=== PATIENT | female | born 1980 | race Caucasian/White ===

== ENCOUNTER 2016-07-08 17:17 | Emergency (ER) | payer OTHER ==
[~2016-07-08 17:17] MED LIST: CIPR500T89 PO; GLYB1.25 PO; LABE20TAB PO; SERT-141 PO; TYLE167L PO; TYLE325T5 PO; ZOLO50TA PO
[2016-07-08] MEDS ORDERED: IBUPROFEN 800 MG TAB As Ordered ONE (17:55)
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
--- NOTE | 2016-07-08 18:49 | REP ---
CHEST X-RAY PA AND LATERAL: 07/08/2016: Clinical history: Trauma. Comparison: 11/06/2015. Findings. Lungs are well inflated and clear. The heart, mediastinal and hilar contours are normal. The airway is intact. The aorta is normal. Bony thorax was unremarkable. There is no free air under the diaphragm. Impression: 1. Negative chest. Signed by Gonzalo Dye MD 07/08/2016 07:57 P
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
== END 2016-07-08 18:27 | disposition home or self-care (01) ==
LOC: M ED 17:17
DX: S20.212A Contusion of left front wall of thorax, initial encounter (principal); S80.02XA Contusion of left knee, initial encounter; V49.40XA Driver injured in collision with unspecified motor vehicles in traffic accident, initial encounter; Y92.410 Unspecified street and highway as the place of occurrence of the external cause; F41.9 Anxiety disorder, unspecified; Z79.899 Other long term (current) drug therapy; Z88.0 Allergy status to penicillin; Z88.8 Allergy status to other drugs, medicaments and biological substances; Z87.891 Personal history of nicotine dependence

== ENCOUNTER → 2016-08-27 | Outpatient (REF) | payer OTHER, MEDICAID ==
[~2016-08-27] MED LIST changes: -SERT-141 PO; +SERT50TA PO
== END ==
LOC: M LAB REF 17:06
PROVIDERS: ATTEND Advanced Practice Midwife
DX: R10.30 Lower abdominal pain, unspecified (principal)

== ENCOUNTER → 2016-09-01 | Outpatient (CLI) | payer OTHER ==
--- NOTE | 2016-09-01 18:47 | REP ---
Clinical: Pelvic pain . Technique: Transabdominal pelvic ultrasound with color Doppler evaluation of the ovaries. Findings: Bladder is unremarkable and measures 11.2 x 6.7 x 8.1 cm . Normal anteverted uterus measures 8.8 x 3.9 x 5.2 cm . The endometrial complex measures 9.1 mm thickness. No discrete uterine or endometrial abnormalities are appreciated. Bilateral ovaries are normal in appearance and vascularity without evidence for torsion. Right ovary measures 4.1 x 1.3 x 2.6 cm ; R I = 0.70 . Left ovary measures 2.4 x 2.5 x 2.2 cm ; R I = 0.60 . No pelvic fluid or adnexal mass lesion. Impression: 1. Normal pelvic ultrasound. No torsion. Signed by Ajay Hammer MD 09/01/2016 06:39 P
== END ==
LOC: M RAD 17:04
PROVIDERS: ATTEND Advanced Practice Midwife
DX: R10.30 Lower abdominal pain, unspecified (principal)

== ENCOUNTER 2017-02-02 10:22 | Emergency (ER) | payer MEDICAID, OTHER ==
[~2017-02-02] VITALS: Ht 172.7 cm; Wt 93.2 kg
[2017-02-02 10:22] VITALS: BP 153/83
[~2017-02-02 10:22] MED LIST changes: +CIPR-249 PO; -CIPR500T89 PO; -GLYB1.25 PO; +GLYB1TAB PO
[2017-02-02] MEDS ORDERED: VALT500T PO (10:52)
[2017-02-02] MEDS ORDERED: LIDO1SOL7 MT (10:52)
[2017-02-02] MEDS ORDERED: valACYclovir HCL 500 MG TAB PO ONE (11:00)
[2017-02-02] MEDS ORDERED: LIDOCAINE VISCOUS 2% SOLN 15ML UDC SSP ONE (11:00)
== END 2017-02-02 10:57 | disposition home or self-care (01) ==
LOC: M ED 10:22
DX: H92.01 Otalgia, right ear (principal); B00.2 Herpesviral gingivostomatitis and pharyngotonsillitis; B00.1 Herpesviral vesicular dermatitis; E11.9 Type 2 diabetes mellitus without complications; F41.9 Anxiety disorder, unspecified

== ENCOUNTER 2017-07-21 17:35 | Emergency (ER) | payer OTHER, MEDICAID, SELFPAY ==
[2017-07-21 19:05] LABS: BASO % 0.4 % (0.0-1.0); EOS # 0.1 10^3/uL (0.0-0.50); EOS % 1.4 % (0.0-3.0); HEMATOCRIT 37.9 % (36.0-47.0); HEMOGLOBIN 12.7 g/dl (12.0-16.0); IMMATURE GRANULOCYTE % 0.1 % (0-3.0); LYMPH # 2.4 10^3/uL (1.5-4.5); LYMPH % 29.9 % (24.0-44.0); MEAN CORPUSCULAR HGB CONC 33.5 g/dl (32.0-36.5); MEAN CORPUSCULAR VOLUME 89.4 fl (80.0-96.0); MONO # 0.6 10^3/uL (0.0-0.8); MONO % 7.3 % (0.0-5.0); NEUTROPHILS # 4.8 10^3/uL (1.8-7.7); NEUTROPHILS % 60.9 % (36.0-66.0); PLATELET COUNT, AUTOMATED 203 10^3/uL (150-450); RED BLOOD COUNT 4.24 10^6/uL (4.00-5.40); RED CELL DISTRIBUTION WIDTH 12.4 % (11.5-14.5); WHITE BLOOD COUNT 7.9 10^3/uL (4.0-10.0)
[2017-07-21 19:19] LABS: D-DIMER QUANT 529.4 ng/ml (<500)
[2017-07-21 19:28] LABS: ANION GAP 6 MEQ/L (8-16); BLOOD UREA NITROGEN 16 MG/DL (7-18); CALCIUM LEVEL 8.6 MG/DL (8.5-10.1); CARBON DIOXIDE LEVEL 30 MEQ/L (21-32); CHLORIDE LEVEL 106 MEQ/L (98-107); CPK CREATINE PHOSPHOKINASE 67 U/L (26-192); CREATININE FOR GFR 0.57 MG/DL (0.55-1.30); GLOMERULAR FILTRATION RATE > 60.0 (>60); GLUCOSE, FASTING 132 MG/DL (70-100); POTASSIUM SERUM 3.9 MEQ/L (3.5-5.1); SODIUM LEVEL 142 MEQ/L (136-145); TROPONIN I < 0.02 NG/ML (< 0.10)
[2017-07-21 19:29] LABS: MB/CK RELATIVE INDEX 1.49 (< OR =4)
[2017-07-21] MEDS: NS 1,000 ML IV (20:00)
[2017-07-21] MEDS ORDERED: ISOVUE-370 76% 100ML VIAL (Q9967) As Ordered (20:36)
[2017-07-21] MEDS: KETOROLAC 30 MG/ML VIAL (J1885) IV (21:37)
== END 2017-07-21 22:03 | disposition home or self-care (01) ==
LOC: M ED 17:35
DX: R07.9 Chest pain, unspecified (principal); R91.1 Solitary pulmonary nodule; F41.9 Anxiety disorder, unspecified; Z87.891 Personal history of nicotine dependence; Z79.899 Other long term (current) drug therapy; Z88.0 Allergy status to penicillin; Z88.8 Allergy status to other drugs, medicaments and biological substances
CPT/HCPCS: Q9967

== ENCOUNTER → 2017-10-14 | Outpatient (CLI) | payer OTHER ==
[2017-10-14 10:27] LABS: BASO % 0.4 % (0.0-1.0); EOS # 0.1 10^3/uL (0.0-0.50); EOS % 1.3 % (0.0-3.0); HEMATOCRIT 39.3 % (36.0-47.0); HEMOGLOBIN 12.9 g/dl (12.0-15.5); IMMATURE GRANULOCYTE % 0.3 % (0-3.0); LYMPH % 28.9 % (24.0-44.0); MEAN CORPUSCULAR HEMOGLOBIN 29.3 pg (27.0-33.0); MEAN CORPUSCULAR HGB CONC 32.8 g/dl (32.0-36.5); MEAN CORPUSCULAR VOLUME 89.1 fl (80.0-96.0); MONO # 0.5 10^3/uL (0.0-0.8); MONO % 6.8 % (0.0-5.0); NEUTROPHILS # 4.3 10^3/uL (1.8-7.7); NEUTROPHILS % 62.3 % (36.0-66.0); PLATELET COUNT, AUTOMATED 198 10^3/uL (150-450); RED BLOOD COUNT 4.41 10^6/uL (4.00-5.40); RED CELL DISTRIBUTION WIDTH 12.4 % (11.5-14.5); WHITE BLOOD COUNT 6.9 10^3/uL (4.0-10.0)
[2017-10-14 10:48] LABS: PROGESTERONE 0.5 NG/ML
[2017-10-14 10:50] LABS: FOLLICLE STIMULATING HORMONE 9.3 mIU/mL
[2017-10-14 11:12] LABS: ALBUMIN/GLOBULIN RATIO 1.11 (1.00-1.93); ALKALINE PHOSPHATASE 94 U/L (45-117); ALT/SGPT 25 U/L (12-78); ANION GAP 4 MEQ/L (8-16); AST/SGOT 16 U/L (7-37); BILIRUBIN,TOTAL 0.4 MG/DL (0.2-1.0); BLOOD UREA NITROGEN 11 MG/DL (7-18); CALCIUM LEVEL 8.5 MG/DL (8.5-10.1); CARBON DIOXIDE LEVEL 30 MEQ/L (21-32); CHLORIDE LEVEL 106 MEQ/L (98-107); CHOLESTEROL LEVEL 176 MG/DL (<200); CHOLESTEROL RISK RATIO 3.591 (<5); CREATININE FOR GFR 0.54 MG/DL (0.55-1.30); GLOMERULAR FILTRATION RATE > 60.0 (>60); GLUCOSE, FASTING 95 MG/DL (70-100); HDL CHOLESTEROL 49 MG/DL (>40); NON-HDL-C 127 MG/DL; SODIUM LEVEL 140 MEQ/L (136-145); THYROXINE (T4) 7.4 UG/DL (4.5-12.0); TOTAL PROTEIN 7.6 GM/DL (6.4-8.2); TRIGLYCERIDES LEVEL 95 MG/DL (<150)
[2017-10-14 11:28] LABS: HIV 1&2 SCREEN CENTAUR NEGATIVE (NEGATIVE)
[2017-10-14 12:09] LABS: CHLAMYDIA DNA AMPLIFICATION NEGATIVE (NEGATIVE); GC DNA AMPLIFICATION NEGATIVE (NEGATIVE)
[2017-10-19 00:08] LABS: ESTRONE SERUM 55 pg/mL (.)
== END ==
LOC: M WUC 08:38
DX: K21.9 Gastro-esophageal reflux disease without esophagitis (principal); N92.1 Excessive and frequent menstruation with irregular cycle; Z13.220 Encounter for screening for lipoid disorders
CPT/HCPCS: 83001

== ENCOUNTER → 2017-10-14 | Outpatient (CLI) | payer OTHER | LOC: M EKG 09:20 | DX: R07.9 Chest pain, unspecified (principal) | CPT/HCPCS: 93005 ==

== ENCOUNTER 2017-10-23 11:16 | Emergency (ER) | payer OTHER | END 2017-10-23 13:23 | disposition home or self-care (01) | LOC: M ED 11:16 | DX: H66.91 Otitis media, unspecified, right ear (principal); J02.9 Acute pharyngitis, unspecified; F33.9 Major depressive disorder, recurrent, unspecified; K58.9 Irritable bowel syndrome, unspecified; Z79.899 Other long term (current) drug therapy; Z88.0 Allergy status to penicillin; Z88.8 Allergy status to other drugs, medicaments and biological substances | CPT/HCPCS: 87880 ==

== ENCOUNTER → 2017-11-09 | Outpatient (REF) | payer OTHER ==
[2017-11-09 12:57] LABS: HCG, SERUM QUANTITATIVE < 1.0 MIU/ML
== END ==
LOC: M LAB REF 12:11
DX: N92.1 Excessive and frequent menstruation with irregular cycle (principal)
CPT/HCPCS: 84702

== ENCOUNTER → 2017-11-17 | Outpatient (CLI) | payer OTHER ==
[~2017-11-17] MED LIST changes: -CIPR-249 PO; -GLYB1TAB PO; +ISOVUE-370 76% 100ML VIAL (Q9967) As Ordered; -LABE20TAB PO; -SERT50TA PO; -TYLE167L PO; -TYLE325T5 PO; -ZOLO50TA PO
== END ==
LOC: M RAD 13:54
DX: R91.1 Solitary pulmonary nodule (principal)
CPT/HCPCS: Q9967

== ENCOUNTER → 2018-01-27 | Outpatient (REF) | payer OTHER, MEDICAID ==
[2018-01-31 14:22] LABS: HPV HYBRID CAPTURE II Negative (Negative)
== END ==
LOC: M LAB REF 11:09
DX: Z12.4 Encounter for screening for malignant neoplasm of cervix (principal)

== ENCOUNTER → 2018-02-07 | Outpatient (CLI) | payer OTHER | LOC: M PLARAD 10:25 | DX: R91.1 Solitary pulmonary nodule (principal) | CPT/HCPCS: 78815 ==

== ENCOUNTER → 2018-03-20 | Outpatient (REF) | payer OTHER, MEDICAID | LOC: M LAB REF 18:20 | DX: R87.612 Low grade squamous intraepithelial lesion on cytologic smear of cervix (LGSIL) (principal) ==

== ENCOUNTER 2018-04-21 08:58 | Day surgery (SDC) | payer OTHER ==
[2018-04-21] MEDS ORDERED: ROCURONIUM BROMIDE 50 MG/5 ML VIAL As Ordered (09:27)
[2018-04-21] MEDS ORDERED: LIDOCAINE 2% INJ 100 MG/5 ML SDV (FOR ANES.) As Ordered (09:27)
[2018-04-21] MEDS ORDERED: dexameTHASONE 4 MG/ML 1ML VIAL (J1100) As Ordered (09:27)
[2018-04-21] MEDS ORDERED: PROPOFOL 200 MG/20 ML VIAL As Ordered (09:27)
[2018-04-21] MEDS ORDERED: fentaNYL 100 MCG/2 ML INJECTION (J3010) As Ordered (09:28)
[2018-04-21] MEDS ORDERED: MIDAZOLAM INJ 2 MG/2 ML VIAL (J2250) As Ordered (09:28)
[2018-04-21 09:35] LABS: HEMATOCRIT 40.3 % (36.0-47.0); HEMOGLOBIN 13.2 g/dl (12.0-15.5); MEAN CORPUSCULAR HEMOGLOBIN 29.7 pg (27.0-33.0); MEAN CORPUSCULAR HGB CONC 32.8 g/dl (32.0-36.5); MEAN CORPUSCULAR VOLUME 90.8 fl (80.0-96.0); PLATELET COUNT, AUTOMATED 221 10^3/uL (150-450); RED BLOOD COUNT 4.44 10^6/uL (4.00-5.40); RED CELL DISTRIBUTION WIDTH 12.8 % (11.5-14.5); WHITE BLOOD COUNT 10.9 10^3/uL (4.0-10.0)
[2018-04-21] MEDS ORDERED: SUGAMMADEX SODIUM 500 MG/5 ML VIAL (BRIDION) As Ordered ×2 (09:35→11:03)
[2018-04-21 09:50] LABS: CONTROL LINE HCG INT CTR LINE PRESENT; HCG, SERUM QUALITATIVE NEGATIVE (NEGATIVE)
[2018-04-21] MEDS: LR 1,000 ML IV ×2 (10:00→11:12)
[2018-04-21] MEDS ORDERED: KETOROLAC 60 MG/2 ML VIAL (J1885) As Ordered (10:42)
[2018-04-21] MEDS ORDERED: ONDANSETRON 4MG/2ML VIAL (J2405) As Ordered (10:42)
[2018-04-21] MEDS: BUPIVACAINE HCL 0.25% 10 ML VIAL As Ordered (10:45)
[2018-04-21] MEDS ORDERED: ePHEDrine SULFATE 25 MG/5 ML(5MG/ML) SYRINGE As Ordered (10:52)
[2018-04-21] MEDS ORDERED: PHENYLephrine HCL 500 MCG/5 ML (100MCG/ML) SYRINGE (J2370) As Ordered (10:53)
[2018-04-21] MEDS: PERCOCET 5MG/325MG TAB PO (11:35)
[2018-04-21] MEDS ORDERED: fentaNYL 100 MCG/2 ML INJECTION (J3010) IV (11:45)
[2018-04-21] MEDS ORDERED: PERCOCET 5MG/325MG TAB PO (11:45)
[2018-04-21] MEDS ORDERED: ONDANSETRON 4MG/2ML VIAL (J2405) IV (11:45)
[2018-04-21] MEDS ORDERED: METOCLOPRAMIDE INJ 10MG/2ML VIAL (J2765) IV (11:45)
[2018-04-21] MEDS ORDERED: MEPERIDINE INJ 25 MG/ML VIAL (J2175) IV (11:45)
[2018-04-21] MEDS: ACETAMINOPHEN 500 MG TAB PO (12:45)
[2018-04-21] MEDS ORDERED: KETOROLAC 30 MG/ML VIAL (J1885) IV (17:00)
== END 2018-04-21 11:47 | disposition home or self-care (01) ==
LOC: M SDC 08:58
DX: Z30.2 Encounter for sterilization (principal); F41.9 Anxiety disorder, unspecified; F32.9 Major depressive disorder, single episode, unspecified; G43.909 Migraine, unspecified, not intractable, without status migrainosus; R91.1 Solitary pulmonary nodule; R06.83 Snoring; Z88.0 Allergy status to penicillin; Z88.8 Allergy status to other drugs, medicaments and biological substances; Z79.899 Other long term (current) drug therapy
CPT/HCPCS: 58671

== ENCOUNTER 2018-04-29 11:24 | Emergency (ER) | payer OTHER ==
[2018-04-29] MEDS: NS 1,000 ML IV (13:09)
[2018-04-29] MEDS: GASTROGRAFIN SOLUTION 30ML PO ×2 (13:10→13:40)
[2018-04-29] MEDS: DICYCLOMINE INJ 20MG/2ML (J0500) IM (13:18)
[2018-04-29 13:24] LABS: BASO % 0.4 % (0.0-1.0); EOS # 0.1 10^3/uL (0.0-0.50); EOS % 1.4 % (0.0-3.0); HEMATOCRIT 38.4 % (36.0-47.0); HEMOGLOBIN 12.7 g/dl (12.0-15.5); IMMATURE GRANULOCYTE % 0.4 % (0-3.0); LYMPH # 1.8 10^3/uL (1.5-4.5); LYMPH % 22.8 % (24.0-44.0); MEAN CORPUSCULAR HEMOGLOBIN 29.3 pg (27.0-33.0); MEAN CORPUSCULAR HGB CONC 33.1 g/dl (32.0-36.5); MEAN CORPUSCULAR VOLUME 88.7 fl (80.0-96.0); MONO # 0.7 10^3/uL (0.0-0.8); MONO % 9.5 % (0.0-5.0); NEUTROPHILS # 5.1 10^3/uL (1.8-7.7); NEUTROPHILS % 65.5 % (36.0-66.0); PLATELET COUNT, AUTOMATED 205 10^3/uL (150-450); RED BLOOD COUNT 4.33 10^6/uL (4.00-5.40); RED CELL DISTRIBUTION WIDTH 12.6 % (11.5-14.5); WHITE BLOOD COUNT 7.8 10^3/uL (4.0-10.0)
[2018-04-29 13:52] LABS: ALBUMIN 3.4 GM/DL (3.2-5.2); ALKALINE PHOSPHATASE 94 U/L (45-117); ALT/SGPT 32 U/L (12-78); AMYLASE 38 U/L (25-115); ANION GAP 5 MEQ/L (8-16); AST/SGOT 19 U/L (7-37); BILIRUBIN,TOTAL 0.2 MG/DL (0.2-1.0); BLOOD UREA NITROGEN 10 MG/DL (7-18); C REACTIVE PROTEIN QUANTITATIV 0.92 MG/DL (0.00-0.30); CALCIUM LEVEL 8.5 MG/DL (8.5-10.1); CARBON DIOXIDE LEVEL 29 MEQ/L (21-32); CHLORIDE LEVEL 108 MEQ/L (98-107); CREATININE FOR GFR 0.49 MG/DL (0.55-1.30); GLOMERULAR FILTRATION RATE > 60.0 (>58); GLUCOSE, FASTING 80 MG/DL (70-100); LIPASE 78 U/L (73-393); POTASSIUM SERUM 3.9 MEQ/L (3.5-5.1); SODIUM LEVEL 142 MEQ/L (136-145); TOTAL PROTEIN 6.8 GM/DL (6.4-8.2)
[2018-04-29 14:01] LABS: APPEARANCE, URINE CLOUDY (CLEAR); BACTERIA, URINE AUTO 1+ (NEGATIVE); BILIRUBIN, URINE AUTO NEGATIVE (NEGATIVE); BLOOD, URINE BLOOD 3+ (NEGATIVE); COLOR, URINE AMBER (YELLOW); GLUCOSE, URINE (UA) AUTO NEGATIVE (NEGATIVE); KETONE, URINE AUTO TRACE mg/dL (NEGATIVE); LEUKOCYTE ESTERASE, URINE AUTO TRACE (NEGATIVE); MUCUS, URINE LARGE (NEGATIVE); NITRITE, URINE AUTO NEGATIVE (NEGATIVE); PROTEIN, URINE AUTO 1+ mg/dL (NEGATIVE); RBC, URINE AUTO 14 /HPF (0-3); SPECIFIC GRAVITY URINE AUTO 1.028 (1.002-1.035); SQUAMOUS EPITHELIAL CELL UR AU 17 /HPF (0-6); WBC, URINE AUTO 11 /HPF (0-3)
[2018-04-29] MEDS ORDERED: ISOVUE-370 76% 100ML VIAL (Q9967) As Ordered (14:01)
[2018-04-29 14:08] LABS: CONTROL LINE UCG INT CTR LINE PRESENT; URINE PREG TEST NEGATIVE (NEGATIVE)
[2018-04-29] MEDS: KETOROLAC 30 MG/ML VIAL (J1885) IV (14:26)
[2018-04-29] MEDS: CIPROFLOXACIN 500 MG TAB PO (15:09)
[2018-04-29] MEDS: metroNIDAZOLE (FLAGYL) 500 MG TAB PO (15:09)
== END 2018-04-29 15:10 | disposition home or self-care (01) ==
LOC: M ED 11:24
DX: N39.0 Urinary tract infection, site not specified (principal); K52.9 Noninfective gastroenteritis and colitis, unspecified; F41.9 Anxiety disorder, unspecified; Z79.899 Other long term (current) drug therapy; Z88.0 Allergy status to penicillin
CPT/HCPCS: Q9963

== ENCOUNTER 2018-08-06 11:00 | Emergency (ER) | payer MEDICAID, OTHER ==
[~2018-08-06] VITALS: Ht 172.7 cm; Wt 95.5 kg
[~2018-08-06 11:00] MED LIST changes: +CIPR-249 PO; +FLAG500T PO; +GLYB1TAB PO; +IBUP-1022 PO; +IBUP1TAB7 PO; -ISOVUE-370 76% 100ML VIAL (Q9967) As Ordered; +LABE20TAB PO; +LIDO1SOL7 MT; +NAPR-50 PO; +PERCOCET PO; +SERT50TA PO; +TYLE167L PO; +TYLE325T5 PO; +VALT500T PO; +ZITHTAB PO; +ZOFR4TAB14 PO; +ZOLO50TA PO
[2018-08-06] MEDS ORDERED: FLON1SPR NARES (11:44)
[2018-08-06] MEDS ORDERED: MUCI600T31 PO (11:44)
[2018-08-06] MEDS ORDERED: ZYRTTAB8 PO (11:45)
[2018-08-06 11:49] VITALS: BP 134/90
== END 2018-08-06 11:51 | disposition home or self-care (01) ==
LOC: M ED 11:00
DX: J30.9 Allergic rhinitis, unspecified (principal); K58.9 Irritable bowel syndrome, unspecified; F41.9 Anxiety disorder, unspecified; Z88.0 Allergy status to penicillin; Z88.8 Allergy status to other drugs, medicaments and biological substances; Z79.899 Other long term (current) drug therapy

== ENCOUNTER 2018-12-12 08:32 | Emergency (ER) | payer MEDICAID, OTHER ==
[~2018-12-12] VITALS: Ht 172.7 cm; Wt 95.5 kg
[~2018-12-12 08:32] MED LIST changes: +FLON1SPR NARES; -LIDO1SOL7 MT; +LIDO1SOL8 MT; +MUCI600T31 PO; -NAPR-50 PO; +NAPR-837 PO; +SERT-141 PO; -SERT50TA PO; +ZYRTTAB8 PO
[2018-12-12] MEDS ORDERED: NS 1,000 ML IV ONE (09:45)
[2018-12-12 10:30] LABS: BASO % 0.6 % (0.0-1.0); EOS # 0.1 10^3/uL (0.0-0.50); EOS % 1.4 % (0.0-3.0); HEMATOCRIT 41.2 % (36.0-47.0); HEMOGLOBIN 13.3 g/dl (12.0-15.5); LYMPH # 2.1 10^3/uL (1.5-4.5); LYMPH % 29.3 % (24.0-44.0); MEAN CORPUSCULAR HEMOGLOBIN 29.7 pg (27.0-33.0); MEAN CORPUSCULAR HGB CONC 32.3 g/dl (32.0-36.5); MONO # 0.6 10^3/uL (0.0-0.8); NEUTROPHILS # 4.3 10^3/uL (1.8-7.7); NEUTROPHILS % 60.4 % (36.0-66.0); PLATELET COUNT, AUTOMATED 183 10^3/uL (150-450); RED BLOOD COUNT 4.48 10^6/uL (4.00-5.40); WHITE BLOOD COUNT 7.1 10^3/uL (4.0-10.0)
[2018-12-12 10:30] LABS: APPEARANCE, URINE HAZY (CLEAR); BACTERIA, URINE AUTO 1+ (NEGATIVE); BILIRUBIN, URINE AUTO NEGATIVE (NEGATIVE); BLOOD, URINE BLOOD NEGATIVE (NEGATIVE); COLOR, URINE YELLOW (YELLOW); GLUCOSE, URINE (UA) AUTO NEGATIVE (NEGATIVE); KETONE, URINE AUTO NEGATIVE (NEGATIVE); LEUKOCYTE ESTERASE, URINE AUTO NEGATIVE (NEGATIVE); MUCUS, URINE SMALL (NEGATIVE); NITRITE, URINE AUTO NEGATIVE (NEGATIVE); PROTEIN, URINE AUTO NEGATIVE (NEGATIVE); RBC, URINE AUTO 1 /HPF (0-3); SPECIFIC GRAVITY URINE AUTO 1.023 (1.002-1.035); SQUAMOUS EPITHELIAL CELL UR AU 5 /HPF (0-6); UROBILINOGEN, URINE AUTO 0.2 mg/dL (0.0-2.0); WBC, URINE AUTO 1 /HPF (0-3)
[2018-12-12 10:55] LABS: ALBUMIN 3.9 GM/DL (3.2-5.2); ALT/SGPT 21 U/L (12-78); BILIRUBIN,DIRECT 0.1 MG/DL (0.0-0.2); BILIRUBIN,TOTAL 0.3 MG/DL (0.2-1.0); BLOOD UREA NITROGEN 10 MG/DL (7-18); CALCIUM LEVEL 8.8 MG/DL (8.5-10.1); CARBON DIOXIDE LEVEL 29 MEQ/L (21-32); CHLORIDE LEVEL 110 MEQ/L (98-107); CREATININE FOR GFR 0.57 MG/DL (0.55-1.30); GLOMERULAR FILTRATION RATE > 60.0 (>58); GLUCOSE, FASTING 89 MG/DL (70-100); POTASSIUM SERUM 3.8 MEQ/L (3.5-5.1); SODIUM LEVEL 134 MEQ/L (136-145); TOTAL PROTEIN 7.6 GM/DL (6.4-8.2)
[2018-12-12] MEDS ORDERED: ISOVUE-370 76% 100ML VIAL (Q9967) As Ordered ONE (11:17)
--- NOTE | 2018-12-12 12:17 | REP ---
CT ABDOMEN AND PELVIS WITH IV CONTRAST: TECHNIQUE: Axial contrast enhanced images from the lung bases to the pubic symphysis using 100 mL Isovue 370 intravenous contrast material with multiplanar reformations. In the visualized lung bases there is an 8 mm nodule in the right posterior costophrenic sulcus. This is stable compared to prior CT of the chest 07/21/2017. Liver is unchanged in appearance. There is an ill-defined nodule in the left lobe unchanged since the 04/29/2018 exam as well as prior study in 2013. This probably represents a hemangioma. Patient has had a prior cholecystectomy. There is not significant biliary dilatation. The spleen, adrenals, pancreas, and kidneys are unremarkable. There is no hydronephrosis bilaterally. There are atherosclerotic calcifications of the abdominal aorta without aneurysm. There is no adenopathy. There is no free air or free fluid. There is no bowel wall thickening. There is no evidence of appendicitis. No pelvic mass is seen. A metallic clip is seen in each adnexal region. There is a dominant follicle of the right ovary 1.4 cm in diameter. No pelvic mass is seen. The urinary bladder is unremarkable. IMPRESSION: Stable nodule posterior right costophrenic sulcus. Status post cholecystectomy. No evidence of appendicitis. No free air or free fluid. Dominant follicle right ovary 1.4 cm in diameter. Electronically Signed by Mike Chowdhury MD 12/13/2018 10:52 A
[2018-12-12] MEDS ORDERED: IBUP-1022 PO (13:45)
--- NOTE | 2018-12-12 13:56 | REP ---
PELVIC ULTRASOUND: Real-time sonographic evaluation of the pelvis is performed. Transabdominal and endovaginal technique is utilized. The bladder measures 10.7 x 5.6 .x 8.9 cm. The uterus measures 9.2 x 4.5 x 6.3 cm. Endometrial thickness is 6 mm. Right ovary measures 3.8 x 2.9 x 2.7 cm and left ovary 2.6 x 1.9 x 2.0 cm. There is a dominant follicle in the right ovary measuring 2.0 x 1.8 x 1.5 cm. There are mild internal echoes. There is no torsion of either ovary. There is trace free fluid. IMPRESSION: Dominant follicle right ovary 2 cm in diameter with no torsion. Trace free fluid. Electronically Signed by Mike Chowdhury MD 12/14/2018 09:20 A
[2018-12-12 13:59] VITALS: BP 164/83
== END 2018-12-12 14:02 | disposition home or self-care (01) ==
LOC: M ED 08:32
DX: N83.291 Other ovarian cyst, right side (principal); F33.9 Major depressive disorder, recurrent, unspecified; F41.9 Anxiety disorder, unspecified; Z79.899 Other long term (current) drug therapy; Z88.0 Allergy status to penicillin; Z88.8 Allergy status to other drugs, medicaments and biological substances
CPT/HCPCS: 36415; 74177; 76830; 76856; 80048; 80076; 81001; 84702; 85025; 93976; 96360; 99284; Q9967

== ENCOUNTER → 2019-01-21 | Outpatient (REF) | payer OTHER, MEDICAID | LOC: M LAB REF 14:16 | PROVIDERS: ATTEND Physician Assistant | DX: N39.0 Urinary tract infection, site not specified (principal) ==

== ENCOUNTER → 2019-02-01 | Outpatient (REF) | payer OTHER, MEDICAID | LOC: M LAB REF 16:14 | PROVIDERS: ATTEND Nurse Practitioner Family | DX: N39.0 Urinary tract infection, site not specified (principal) ==

== ENCOUNTER 2019-02-18 19:04 | Emergency (ER) | payer MEDICAID, OTHER, SELFPAY ==
[~2019-02-18] VITALS: Ht 172.7 cm; Wt 97.7 kg
[~2019-02-18 19:04] MED LIST changes: -GLYB1TAB PO; +[UNRECOGNIZED DRUG - CODE] PO
[2019-02-18] MEDS ORDERED: CIPROFLOXACIN 500 MG TAB PO ONE (20:15)
[2019-02-18] MEDS ORDERED: CIPR-249 PO (20:15)
[2019-02-18 20:26] VITALS: BP 145/92
== END 2019-02-18 20:29 | disposition home or self-care (01) ==
LOC: M ED 19:04
DX: N39.0 Urinary tract infection, site not specified (principal); K21.9 Gastro-esophageal reflux disease without esophagitis; E11.9 Type 2 diabetes mellitus without complications; Z88.0 Allergy status to penicillin; Z88.8 Allergy status to other drugs, medicaments and biological substances; Z87.891 Personal history of nicotine dependence

== ENCOUNTER 2019-02-20 18:51 | Emergency (ER) | payer MEDICAID, SELFPAY ==
[~2019-02-20] VITALS: Ht 172.7 cm; Wt 97.9 kg
[~2019-02-20 18:51] MED LIST changes: +GLYB1TAB PO; -[UNRECOGNIZED DRUG - CODE] PO
[2019-02-20] MEDS ORDERED: CIPR-249 PO (19:52)
[2019-02-20] MEDS ORDERED: AZO1CAP PO (19:52)
[2019-02-20 20:01] LABS: BASO % 0.4 % (0.0-1.0); EOS # 0.1 10^3/uL (0.0-0.5); EOS % 1.2 % (0.0-3.0); HEMATOCRIT 37.9 % (36.0-47.0); HEMOGLOBIN 12.4 g/dl (12.0-15.5); LYMPH # 2.7 10^3/uL (1.5-5.0); LYMPH % 31.9 % (24.0-44.0); MEAN CORPUSCULAR HGB CONC 32.7 g/dl (32.0-36.5); MEAN CORPUSCULAR VOLUME 91.8 fl (80.0-96.0); MONO # 0.6 10^3/uL (0.0-0.8); MONO % 7.2 % (0.0-5.0); NEUTROPHILS % 59.1 % (36.0-66.0); PLATELET COUNT, AUTOMATED 196 10^3/uL (150-450); RED BLOOD COUNT 4.13 10^6/uL (4.00-5.40); WHITE BLOOD COUNT 8.4 10^3/uL (4.0-10.0)
[2019-02-20 20:38] LABS: ALBUMIN 3.8 GM/DL (3.2-5.2); ALT/SGPT 27 U/L (12-78); BILIRUBIN,TOTAL 0.2 MG/DL (0.2-1.0); BLOOD UREA NITROGEN 13 MG/DL (7-18); C REACTIVE PROTEIN QUANTITATIV 0.78 MG/DL (0.00-0.30); CALCIUM LEVEL 8.8 MG/DL (8.5-10.1); CARBON DIOXIDE LEVEL 29 MEQ/L (21-32); CHLORIDE LEVEL 107 MEQ/L (98-107); CK-MB VALUE MASS < 1.0 NG/ML (<3.6); CPK CREATINE PHOSPHOKINASE 55 U/L (26-192); CREATININE FOR GFR 0.69 MG/DL (0.55-1.30); ERYTHROCYTE SEDIMENTATION RATE 22 mm/hr (0-20); GLOMERULAR FILTRATION RATE > 60.0 (>58); GLUCOSE, FASTING 123 MG/DL (70-100); MB/CK RELATIVE INDEX 1.82 (< OR =4); POTASSIUM SERUM 3.8 MEQ/L (3.5-5.1); SODIUM LEVEL 140 MEQ/L (136-145); TOTAL PROTEIN 7.3 GM/DL (6.4-8.2); TROPONIN I < 0.02 NG/ML (< 0.10)
[2019-02-20] MEDS ORDERED: METOCLOPRAMIDE INJ 10MG/2ML VIAL (J2765) IV ONE (21:45)
[2019-02-20] MEDS ORDERED: ACETAMINOPHEN 325 MG TAB PO ONE (21:45)
[2019-02-20] MEDS ORDERED: NS 1,000 ML IV ONE (21:45)
[2019-02-20] MEDS ORDERED: KETOROLAC 30 MG/ML VIAL (J1885) IV ONE (21:45)
--- NOTE | 2019-02-20 22:16 | REPVR ---
EXAM: CT Head Without Contrast EXAM DATE/TIME: 02/20/2019 9:47 PM CLINICAL HISTORY: 38 years old, female; Pain; Headache; Additional info: Headache, sharp pains TECHNIQUE: Imaging protocol: Computed tomography of the head without contrast. Radiation optimization: All CT scans at this facility use at least one of these dose optimization techniques: automated exposure control; mA and/or kV adjustment per patient size (includes targeted exams where dose is matched to clinical indication); or iterative reconstruction. COMPARISON: No relevant prior studies available. FINDINGS: Brain: No intracranial mass, mass effect or midline shift. No acute intracranial hemorrhage. No CT evidence of acute cortical infarct. Ventricles: Ventricles, cisterns, and sulci are normal in size for age. Bones/joints: No calvarial fracture or destructive process. Sinuses: Imaged paranasal sinuses are clear. Mastoid air cells: Mastoid air cells are normally aerated. Orbits: Imaged orbits are unremarkable. Soft tissues: No focal extracranial soft tissue swelling. IMPRESSION: No acute or concerning focal intracranial abnormality. Electronically signed by: Jose Torres On 02/20/2019 22:16:38 PM
[2019-02-20] MEDS ORDERED: KETO10TAB PO (23:12)
[2019-02-20] MEDS ORDERED: KETOROLAC TROMETHAMINE 10 MG TAB PO ONE (23:15)
[2019-02-20 23:20] VITALS: BP 148/92
--- NOTE | 2019-02-22 21:20 | ECGEPIP ---
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
== END 2019-02-20 23:24 | disposition home or self-care (01) ==
LOC: M ED 18:51
DX: R51 Headache (principal); Z79.899 Other long term (current) drug therapy; Z88.0 Allergy status to penicillin; Z88.8 Allergy status to other drugs, medicaments and biological substances
CPT/HCPCS: 70450; 80053; 82550; 82553; 85025; 85652; 86140; 93005; 96361; 96374; 96375; 99284; J1885; J2765

== ENCOUNTER → 2020-01-09 | Outpatient (REF) | payer MEDICAID, OTHER ==
[~2020-01-09] MED LIST changes: +AZO1CAP PO; -GLYB1TAB PO; +KETO10TAB PO; -LIDO1SOL8 MT; +LIDO2SOL17 MT; +[UNRECOGNIZED DRUG - CODE] PO
== END ==
LOC: M LAB REF 08:25
PROVIDERS: ATTEND Physician Assistant
DX: J02.9 Acute pharyngitis, unspecified (principal)

== ENCOUNTER → 2020-04-18 | Outpatient (CLI) | payer OTHER ==
--- NOTE | 2020-04-18 16:50 | REPMRS ---
Patient History The patient states she had a clinical breast exam in 04/25 No known family history of cancer. Benign ultrasound-guided core biopsy of the right breast, December 04, 2013. Took hormonal contraceptives for 16 years. Digital Woman Screen Mammo: April 18, 2020 - Exam #: [id number] Bilateral CC and MLO view(s) were taken. Technologist: Alta Malcolm, Technologist Prior study comparison: November 16, 2013, right breast digital mammo diagnostic unilateral, performed at [facility]. FINDINGS: There are scattered fibroglandular densities. The Volpara volumetric breast density category is: B. There is a needle biopsy marker clip in the right breast. There is a moderate amount of residual fibroglandular tissue which is fairly symmetric. There is no interval development of dominant mass, architectural distortion, or grouped microcalcification typical of malignancy. There has been no change in the appearance of the mammogram from the prior studies. 3-D tomosynthesis shows no additional findings. Assessment: BI-RADS/ACR category 2 mammogram. Benign Findings. Recommendation Routine screening mammogram of both breasts in 1 year (for women over age 40). This patient's Lifetime Breast Cancer RIsk is estimated at 10.0 %. This mammogram was interpreted with the aid of an FDA-approved computer-aided dectection system. Electronically Signed By: Gary Martins MD 04/18/20 [id number]
== END ==
LOC: M WHC 14:17
PROVIDERS: ATTEND Advanced Practice Midwife
DX: Z12.31 Encounter for screening mammogram for malignant neoplasm of breast (principal)

== ENCOUNTER → 2020-04-18 | Outpatient (REF) | payer OTHER ==
[2020-04-18 17:44] LABS: HEMATOCRIT 39.7 % (36.0-47.0); MEAN CORPUSCULAR HEMOGLOBIN 29.7 pg (27.0-33.0); MEAN CORPUSCULAR HGB CONC 32.7 g/dl (32.0-36.5); MEAN CORPUSCULAR VOLUME 90.6 fl (80.0-96.0); PLATELET COUNT, AUTOMATED 220 10^3/uL (150-450); RED BLOOD COUNT 4.38 10^6/uL (4.00-5.40); WHITE BLOOD COUNT 8.6 10^3/uL (4.0-10.0)
[2020-04-18 18:15] LABS: FREE T4 0.91 NG/DL (0.76-1.46); THYROID STIMULATING HORMONE 1.42 uIU/ML (0.358-3.740)
== END ==
LOC: M PLALAB 15:51
PROVIDERS: ATTEND Advanced Practice Midwife
DX: N92.1 Excessive and frequent menstruation with irregular cycle (principal)

== ENCOUNTER → 2020-04-30 | Outpatient (CLI) | payer OTHER ==
--- NOTE | 2020-04-30 16:32 | REP ---
INDICATION: N92.1 MENOMETRORRHAGIA COMPARISON: None. TECHNIQUE: Transabdominal pelvic ultrasound followed by transvaginal examination for better evaluation of the endometrium and adnexa with color Doppler evaluation of the ovaries. FINDINGS: Bladder is is essentially collapsed measuring less than 10 cc. Heterogeneous anteverted uterus measures 10.4 x 4.5 x 6.1 cm. The endometrial complex measures 10 mm thickness. No discrete uterine or endometrial abnormalities are appreciated. Bilateral ovaries are normal in vascularity without evidence for torsion. Right ovary measures 2.8 x 1.1 x 1.4 cm; R I = 0.60. Left ovary measures 3.5 x 2.0 x 3.0 cm and includes 1.8 x 1.7 x 1.0 cm complex cyst; R I = 0.64. No pelvic fluid or adnexal mass lesion. IMPRESSION: 1. Heterogeneous uterus without definable fibroid. 2. 1.8 cm complex left ovarian cyst likely involuting dominant follicle. <Electronically signed by Ajay Hammer > 04/30/20 [id number]
== END ==
LOC: M WHC 15:24
PROVIDERS: ATTEND Advanced Practice Midwife
DX: N92.1 Excessive and frequent menstruation with irregular cycle (principal)

== ENCOUNTER → 2020-05-09 | Outpatient (REF) | payer OTHER | LOC: M SFHCWAGY 16:50 | PROVIDERS: ATTEND Advanced Practice Midwife | DX: N92.1 Excessive and frequent menstruation with irregular cycle (principal); Z12.4 Encounter for screening for malignant neoplasm of cervix; Z01.419 Encounter for gynecological examination (general) (routine) without abnormal findings ==

== ENCOUNTER → 2020-08-27 | Outpatient (CLI) | payer OTHER, MEDICAID ==
[~2020-08-27] MED LIST changes: +PRIL20TA2 PO
== END ==
LOC: M LABSMTC 09:48
PROVIDERS: ATTEND Anesthesiology
DX: Z01.812 Encounter for preprocedural laboratory examination (principal); Z20.822 Contact with and (suspected) exposure to COVID-19

== ENCOUNTER 2020-09-01 06:17 | Day surgery (SDC) | payer OTHER ==
[2020-09-01] VITALS (8 sets, daily range): BP systolic 129–148; BP diastolic 77–93
[~2020-09-01] VITALS: Ht 175.3 cm; Wt 97.9 kg
[~2020-09-01 06:17] MED LIST changes: +LR 1,000 ML IV SCH
[2020-09-01 06:51] LABS: HEMATOCRIT 35.9 % (36.0-47.0); HEMOGLOBIN 11.5 g/dl (12.0-15.5); MEAN CORPUSCULAR HEMOGLOBIN 28.3 pg (27.0-33.0); MEAN CORPUSCULAR VOLUME 88.4 fl (80.0-96.0); PLATELET COUNT, AUTOMATED 200 10^3/uL (150-450); RED BLOOD COUNT 4.06 10^6/uL (4.00-5.40)
[2020-09-01] MEDS ORDERED: metroNIDAZOLE 500 MG in IV 1 EA IV ONE (06:55)
[2020-09-01] MEDS ORDERED: CIPROFLOXACIN 400 MG in IV 1 EA IV ONE (06:55)
[2020-09-01] MEDS ORDERED: propofoL 200 MG/20 ML VIAL As Ordered ONE (06:58)
[2020-09-01] MEDS ORDERED: fentaNYL 100 MCG/2 ML INJECTION (J3010) As Ordered ONE ×2 (06:58→08:20)
[2020-09-01] MEDS ORDERED: ROCURONIUM BROMIDE 50 MG/5 ML VIAL As Ordered ONE ×2 (06:58→08:01)
[2020-09-01] MEDS ORDERED: MIDAZOLAM INJ 2MG/2ML VIAL (J2250 PER 1MG) As Ordered ONE (06:58)
[2020-09-01] MEDS ORDERED: LIDOCAINE 2% 100MG/5ML SDV (FOR ANES.) As Ordered ONE (06:59)
[2020-09-01] MEDS ORDERED: dexameTHASONE 4 MG/ML 1ML VIAL (J1100 PER 1MG) As Ordered ONE (06:59)
[2020-09-01] MEDS ORDERED: ONDANSETRON 4MG/2ML VIAL As Ordered ONE (06:59)
[2020-09-01] MEDS ORDERED: LR 1,000 ML IV ONE (07:00)
[2020-09-01] MEDS ORDERED: METHYLENE BLUE 0.5% (5MG/ML) 10 ML AMP (PROVAYBLUE) As Ordered ONE (07:16)
[2020-09-01] MEDS ORDERED: BUPIVACAINE HCL 0.25% 30ML VIAL As Ordered ONE (07:16)
[2020-09-01] MEDS ORDERED: ACETAMINOPHEN 1000MG 100ML IV BTL (OFIRMEV) (J0131 PER 10MG) As Ordered ONE (07:55)
[2020-09-01] MEDS ORDERED: CLINDAMYCIN 900 MG/50 ML PREMIX BAG As Ordered ONE (08:03)
[2020-09-01] MEDS ORDERED: KETOROLAC 60MG 2ML VIAL As Ordered ONE (08:06)
[2020-09-01] MEDS ORDERED: SUGAMMADEX SODIUM 500 MG/5 ML VIAL (BRIDION) As Ordered ONE (08:06)
[2020-09-01] MEDS ORDERED: LACRILUBE (AKWA TEARS) OPHTH OINT 3.5 GM As Ordered ONE (08:47)
[2020-09-01] MEDS ORDERED: fentaNYL 100 MCG/2 ML INJECTION (J3010) IV PRN (09:50)
[2020-09-01] MEDS ORDERED: PERCOCET 5MG/325MG TAB PO PRN ×2 (09:50→11:30)
[2020-09-01] MEDS ORDERED: ONDANSETRON 4MG/2ML VIAL IV PRN ×2 (09:50→11:30)
[2020-09-01] MEDS ORDERED: LR 1,000 ML IV SCH ×2 (09:50→11:25)
[2020-09-01] MEDS ORDERED: oxyCODONE 5MG TAB PO PRN (09:50)
--- NOTE | 2020-09-01 11:56 | ROOPDOC ---
[facility] Report Of Operation Report of Operation DATE OF PROCEDURE: 09/01/20 PREPROCEDURE DIAGNOSES: 1. [Abnormal uterine bleeding.] POSTPROCEDURE DIAGNOSES: 1. [Abnormal uterine bleeding.] PROCEDURES PERFORMED: 1. Robotic-assisted laparoscopic hysterectomy. 2. Bilateral salpingectomy. 3. Cystoscopy. SURGEON: Duc Alonzo MD BUSINESS OPERATIONS ANALYST: HEVER Pop ANESTHESIA: General endotracheal anesthesia. ESTIMATED BLOOD LOSS: 75 mL. INTRAVENOUS FLUIDS: [1000]mL lactated Ringer solution. URINE OUTPUT: [100]mL. PREPROCEDURE ANTIBIOTICS: OPERATIVE FINDINGS: [The patient with normal-appearing bilateral adnexa and uterus. Filshie clips bilaterally and fallopian tubes consistent with the previous sterilization] CYSTOSCOPIC FINDING: Normal bladder mucosa, no foreign objects. Bilateral ureteral jets were observed. SPECIMEN: [Uterus, cervix, bilateral fallopian tubes] DESCRIPTION OF PROCEDURE: After informed consent was obtained and written consent was reviewed, the patient was brought to the operating room, where general endotracheal anesthesia was obtained. She was then placed in lithotomy position, was prepped and draped in a normal sterile fashion. A time-out in the operating room was then performed, identifying the patient, procedure to be performed, as well as drug allergies. A speculum was then placed, revealing the cervix. The anterior and posterior aspects of the cervix were stitched with a 0 Vicryl. The uterus was then sounded to 11 cm. A [large] VCare uterine manipulator was then advanced through the cervical os for means to manipulate the uterus. The cervical cap was applied over the cervix, as well as the vaginal sleeve applied into the vagina. The speculum was removed from the patients vagina. A Islas catheter was then placed and set to gravity. Gloves were changed, and attention was turned to the patients abdomen, where a Veress needle was placed through the umbilicus. A pneumoperitoneum was then obtained with CO2 gas. The supraumbilical area was infused with 0.25% Marcaine. An incision was made in this area, and a 8 mm trocar and sleeve was advanced through this incision. The laparoscope was then replaced, revealing intra-abdominal placement. Three additional port sites were placed, two to the left side of the patient's abdomen and one to the right. These areas was infused with 0.25% Marcaine. Each one of these areas, incisions were made, and 8 mm trocars and sleeves advanced through each one of these incisions under direct visualization. Next, the da Vaishali was then docked, utilizing a camera arm and two operative arms. The patient's abdomen was then surveyed with the above-noted finding. Bilateral salpingectomies were then performed. The fallopian tubes' mesosalpinx was cauterized and ligated with hemostasis noted. Next, the uteroovarian ligaments bilateral were cauterized and ligated with good hemostasis noted. The round ligaments bilaterally were cauterized and ligated with good hemostasis noted. The anterior and posterior aspects of broad ligaments were . The anterior leaf of the broad ligament was cauterized and ligated and dissected along the bladder, creating a bladder flap. The remainder of the broad and cardinal ligaments were then cauterized and ligated with good hemostasis noted. The uterine arteries were skeletonized bilaterally and were cauterized and transected with good hemostasis noted. Anterior and posterior colpotomies were made using monopolar scissors. The uterus was then brought out through the vaginal incision. The surgical sites were inspected and noted to be hemostatic. The vaginal cuff was then closed using 2-0 V-Loc system in a running fashion. Drew was then applied over the surgical field. The pneumoperitoneum was then released. Next, the cystoscopy was then performed. Utilizing a 70-degree cystoscope, it was advanced transurethrally through the bladder. The bladder was surveyed, showing normal bladder mucosa, no foreign bodies. The bilateral ureteral jets were observed. The cystoscope was then removed. The bladder was then drained. Gloves were changed. Attention was then turned to the patients abdomen, where all four port sites were closed with 4-0 Monocryl and dressed with Dermabond. The patient was then taken out of lithotomy position and was awakened from general anesthesia and taken to recovery in stable condition. Counts were correct. Grecia Sena, my surgical garment inspector, played a central role in the operation. She assisted with port placement, tissue retraction and identification, as well as wound closure. DUC ALONZO MD. Sep 01, 2020 11:56
[2020-09-01] MEDS: KETOROLAC 30 MG/ML 1ML VIAL IV SCH ×2 (14:09→20:36)
[2020-09-02 02:00] VITALS: BP 152/94
[2020-09-02] MEDS: KETOROLAC 30 MG/ML 1ML VIAL IV SCH ×2 (02:15→08:39)
[2020-09-02 06:00] VITALS: BP 151/94
[2020-09-02 06:42] LABS: HEMATOCRIT 30.4 % (36.0-47.0); HEMOGLOBIN 9.9 g/dl (12.0-15.5); MEAN CORPUSCULAR HEMOGLOBIN 28.5 pg (27.0-33.0); MEAN CORPUSCULAR HGB CONC 32.6 g/dl (32.0-36.5); MEAN CORPUSCULAR VOLUME 87.6 fl (80.0-96.0); PLATELET COUNT, AUTOMATED 202 10^3/uL (150-450); RED BLOOD COUNT 3.47 10^6/uL (4.00-5.40); WHITE BLOOD COUNT 9.5 10^3/uL (4.0-10.0)
[2020-09-02 10:00] VITALS: BP 132/79
== END 2020-09-02 11:17 | disposition home or self-care (01) ==
LOC: M SDC 06:17 → M MSPAV 11:00 → M SDC 09-02 11:17
PROVIDERS: ATTEND Obstetrics & Gynecology
DX: N93.9 Abnormal uterine and vaginal bleeding, unspecified (principal); N80.0 Endometriosis of uterus; N72 Inflammatory disease of cervix uteri; K21.9 Gastro-esophageal reflux disease without esophagitis; G43.909 Migraine, unspecified, not intractable, without status migrainosus; F41.9 Anxiety disorder, unspecified; F32.9 Major depressive disorder, single episode, unspecified; Z79.899 Other long term (current) drug therapy; Z88.0 Allergy status to penicillin; Z88.8 Allergy status to other drugs, medicaments and biological substances
CPT/HCPCS: 36415; 58571; 85027; 86850; 86900; 86901; 88307; 96374; 96376; J0131; J0744; J1100; J1885; J2250; J2405; J3010; Q9968; S2900

== ENCOUNTER → 2021-02-24 | Outpatient (CLI) | payer OTHER ==
[~2021-02-24] MED LIST changes: -LR 1,000 ML IV SCH
[2021-02-24 18:23] LABS: HEMOGLOBIN A1c 5.7 %
[2021-02-24 18:30] LABS: ALBUMIN 3.7 GM/DL (3.2-5.2); ALT/SGPT 23 U/L (12-78); BILIRUBIN,TOTAL 0.2 MG/DL (0.2-1.0); BLOOD UREA NITROGEN 18 MG/DL (7-18); CALCIUM LEVEL 9.1 MG/DL (8.5-10.1); CARBON DIOXIDE LEVEL 30 MEQ/L (21-32); CHLORIDE LEVEL 106 MEQ/L (98-107); CREATININE FOR GFR 0.54 MG/DL (0.55-1.30); GLOMERULAR FILTRATION RATE > 60.0 (>58); GLUCOSE, FASTING 113 MG/DL (70-100); SODIUM LEVEL 140 MEQ/L (136-145); TOTAL PROTEIN 7.3 GM/DL (6.4-8.2)
== END ==
LOC: M LAB 16:30
PROVIDERS: ATTEND Nurse Practitioner Adult Health
DX: R68.89 Other general symptoms and signs (principal); Z83.3 Family history of diabetes mellitus

== ENCOUNTER → 2021-03-23 | Outpatient (CLI) | payer OTHER ==
[~2021-03-23] MED LIST changes: +LOSA50TA88 PO
[2021-03-23 17:02] LABS: AMORPHOUS SEDIMENT SMALL (NEGATIVE); APPEARANCE, URINE HAZY (CLEAR); BACTERIA, URINE AUTO NEGATIVE (NEGATIVE); BILIRUBIN, URINE AUTO NEGATIVE (NEGATIVE); BLOOD, URINE BLOOD NEGATIVE (NEGATIVE); COLOR, URINE YELLOW (YELLOW); GLUCOSE, URINE (UA) AUTO NEGATIVE (NEGATIVE); KETONE, URINE AUTO NEGATIVE (NEGATIVE); LEUKOCYTE ESTERASE, URINE AUTO NEGATIVE (NEGATIVE); MUCUS, URINE SMALL (NEGATIVE); NITRITE, URINE AUTO NEGATIVE (NEGATIVE); PROTEIN, URINE AUTO NEGATIVE (NEGATIVE); RBC, URINE AUTO 3 /HPF (0-3); SPECIFIC GRAVITY URINE AUTO 1.027 (1.002-1.035); SQUAMOUS EPITHELIAL CELL UR AU 1 /HPF (0-6); UROBILINOGEN, URINE AUTO 0.2 mg/dL (0.0-2.0); WBC, URINE AUTO 2 /HPF (0-3)
[2021-03-23 17:15] LABS: HEMATOCRIT 39.1 % (36.0-47.0); HEMOGLOBIN 13.1 g/dl (12.0-15.5); MEAN CORPUSCULAR HEMOGLOBIN 30.2 pg (27.0-33.0); MEAN CORPUSCULAR HGB CONC 33.5 g/dl (32.0-36.5); MEAN CORPUSCULAR VOLUME 90.1 fl (80.0-96.0); PLATELET COUNT, AUTOMATED 227 10^3/uL (150-450); RED BLOOD COUNT 4.34 10^6/uL (4.00-5.40); WHITE BLOOD COUNT 9.1 10^3/uL (4.0-10.0)
[2021-03-23 17:36] LABS: ALBUMIN 3.9 GM/DL (3.2-5.2); ALT/SGPT 22 U/L (12-78); BILIRUBIN,TOTAL 0.3 MG/DL (0.2-1.0); BLOOD UREA NITROGEN 17 MG/DL (7-18); CALCIUM LEVEL 9.2 MG/DL (8.5-10.1); CARBON DIOXIDE LEVEL 31 MEQ/L (21-32); CHLORIDE LEVEL 104 MEQ/L (98-107); CREATININE FOR GFR 0.59 MG/DL (0.55-1.30); GLOMERULAR FILTRATION RATE > 60.0 (>58); GLUCOSE, FASTING 92 MG/DL (70-100); POTASSIUM SERUM 4.2 MEQ/L (3.5-5.1); SODIUM LEVEL 138 MEQ/L (136-145); TOTAL PROTEIN 7.4 GM/DL (6.4-8.2)
--- NOTE | 2021-03-23 19:20 | REP ---
INDICATION: STRESS INCONTINENCE (FEMALE) (MALE)/ LABS 1ST, XRAY 2ND COMPARISON: 10/14/2017 TECHNIQUE: PA and lateral. FINDINGS: The mediastinum and cardiac silhouette are normal. The lung velarde are clear and without acute consolidation, effusion, or pneumothorax. The skeletal structures are intact and normal. IMPRESSION: No acute cardiopulmonary process. <Electronically signed by Ajay Hammer > 03/23/21 [id number]
== END ==
LOC: M LAB 16:22
PROVIDERS: ATTEND Urology
DX: N39.3 Stress incontinence (female) (male) (principal)

== ENCOUNTER → 2021-03-25 | Outpatient (CLI) | payer OTHER, MEDICAID | LOC: M LABSMTC 11:07 | PROVIDERS: ATTEND Anesthesiology | DX: Z01.812 Encounter for preprocedural laboratory examination (principal); Z20.822 Contact with and (suspected) exposure to COVID-19 ==

== ENCOUNTER 2021-03-30 08:29 | Day surgery (SDC) | payer OTHER ==
[~2021-03-30] VITALS: Ht 175.3 cm; Wt 98.0 kg
[~2021-03-30 08:29] MED LIST changes: +LR 1,000 ML IV ONE
--- OUTSIDE RECORDS SUMMARY | 2021-03-30 08:36 | CCD ---
Author Author [facility] Organization [facility] Address Unknown Phone Unavailable Care Team Providers Care Head Batcher Name Role Phone JohnGerald Unavailable PROBLEMS Type Condition ICD9-CM Code [id number] Code Onset Dates Condition S tatus W/U Status Risk SNOMED Code Notes Problem Continuous leakage of urine N39.45 Active confirmed 021196077 Problem Stress incontinence in female N39.3 Active confirm ed 51792159 Problem Menstrual migraine 346.40 Active confirmed 2 2628444 Problem Menometrorrhagia N92.1 Active confirmed 314 955247 Problem Dyspareunia in female N94.10 Active confirmed 38872068 ALLERGIES Allergen (clinical drug ingredient) Drug/Non Drug Allergy do cumented on EMR Reaction Allergy Type Onset Date Status promethazine Phenergan([facility] Code:[address]-06) Hives Drug Allerg y Active Cipro Rash Non Drug Allergy Active Penicillin (For Allergies Use Only) hives Drug Allerg y Active ENCOUNTERS from 1980 to 2021-02-18 Encounter Location Date Provider Diagnosis [facility] [address] [phone] [place] [address] 14 Feb, 2021 Gerald John Continuous leakage of urine N39.45 and S tress incontinence in female N39.3 IMMUNIZATIONS No Information SOCIAL HISTORY Sex Assigned At : Social History Observation Description Sex Assigned At Unknown Education: Question Answer Notes Level of Education: high school General Brown Audit Question Answer Notes Total Score: 2 Interpretation: Alcohol Education Language: Question Answer Notes Languages spoken: Telugu Hinduism: Question Answer Notes Hinduism 99 Other Sexual Hx: Question Answer Notes Had sex in the last 12 months (vaginal, oral, or anal)? Yes Have you ever had an STD? Yes with Men only Use protection? Yes Herpes? Yes How often? All of the time Drug and Alcohol Question Answer Notes Total Score: 0 Interpretation: No problems reported Alcohol Screening: Question Answer Notes Did you have a drink containing alcohol in the past year? Ye s Points 1 Interpretation Negative How often did you have six or more drinks on one occas ion in the past year? Never (0 points) How many drinks did you have on a typica l day when you were drinking in the past year? 1 or 2 (0 points) How often did you have a drink containing alcohol in t he past year? Monthly or less (1 point) REASON FOR REFERRAL from 1980 to 2021-02-18 Reason Please eval and treat rhoda cabral for urinary issues, due to her insurance she needs to have a referral thank you Diagnosis 1 Continuous leakage of urine (N39.45) Diagnosis 2 Stress incontinence in femal e (N39.3) Referral Organization [facility] Referring Provider First Name Gerald Referring Provider Last Name John Referring Provider Specialty Urology Referred Organization [facility] Referred Provider Gerald Lopez Referred Address [phone] ,[place], [place],[address] Referred Provider Specialty Urology Referral Priority Routine General Notes Tali Dao 02/18/2021 10: 24:44 AM > referral faxed VITAL SIGNS No information MEDICATIONS Medication SIG (Take, Route, Frequency, Duration) Notes Start Da te End Date Status Zoloft 100 MG 1 tablet Orally Once a day 100 +68=605 MG Active Valtrex 500 mg 1 tablet Orally twice daily for 3 to 5 days and as needed for outbreak for 30 Active Excedrin Migraine 250-250-65 MG 2 tablets as needed fo r pain Orally every 6 hrs/ as needed h/a Active Losartan Potassium 25 MG 1 tablet Orally Once a day for 30 day(s ) Jan, Active Zoloft 25 MG 1 tablet Orally Once a day Active Ibuprofen 800 MG 1 tablet with food or milk as needed Ora lly Three times a day Active Omeprazole 20 MG 1 capsule 30 minutes before morning meal Orally Once a day for 30 day(s) Active PROCEDURES No Information RESULTS No Results REASON FOR VISIT auth MEDICAL (GENERAL) HISTORY Type Description Date Medical History anxiety Medical History depression Medical History migraine headache Medical History herpes type 1 Medical History Gestational diabetes Surgical History right breast biopsy benign fibroadenoma 12/2013 Surgical History tubal ligation 04/2016 Surgical History RALH & BS 09/01/2020 Surgical History hysterectomy 2020 Hospitalization History surgery Hospitalization History Childbirth Goals Section No Information Health Concerns No Information MEDICAL EQUIPMENT No Information MENTAL STATUS No Information FUNCTIONAL STATUS No Information ASSESSMENTS Encounter Date Diagnosis Assessment Notes Treatment Notes Treatm ent Clinical Notes Feb, Stress incontinence in female (ICD-10 - N39.3) Feb, Continuous leakage of urine (ICD-10 - N39.45) PLAN OF TREATMENT Referrals Referral Date Details Please eval and treat rhoda cabral for urinary issues, due to her insurance she needs to have a referral thank you, Gerald Lopez, [address], [place], [address], Next Appt Details Provider Name:Solange Flynn, 08:30:00 AM, [address] [facility], , [place], [address], Provider Name:Jean Carlos Mobley, 2021-02-05 9 02:15:00 PM, [address], , [place], [address], Insurance Providers Payer Name Payer Address Payer Phone Insured Name Patient Relati onship to Insured Coverage Start Date Coverage End Date [facility] COMM[facility] PLAN [facility] [address] [facility] [phone] EMI FISHER self
--- OUTSIDE RECORDS SUMMARY | 2021-03-30 08:36 | CCD ---
Author Author [facility] Organization [facility] Address Unknown Phone Unavailable Care Team Providers Care Spiral Tube Winder Helper Name Role Phone Jean Carlos Mobley Unavailable PROBLEMS Type Condition ICD9-CM Code [id number] Code Onset Dates Condition S tatus W/U Status Risk SNOMED Code Notes Problem Female incontinence N39.3 Active confirmed 87431176 Problem Stress incontinence in female N39.3 Active confirm ed 05663900 Problem Stress incontinence N39.3 Active confirmed 81273961 Problem Menstrual migraine 346.40 Active confirmed 2 4335670 Problem Menometrorrhagia N92.1 Active confirmed 314 355611 Problem Dyspareunia in female N94.10 Active confirmed 51960046 Problem Continuous leakage of urine N39.45 Active confirmed 416697908 ALLERGIES Allergen (clinical drug ingredient) Drug/Non Drug Allergy do cumented on EMR Reaction Allergy Type Onset Date Status promethazine Phenergan([facility] Code:[address]-35) Hives Drug Allerg y Active Cipro Rash Non Drug Allergy Active Penicillin (For Allergies Use Only) hives Drug Allerg y Active ENCOUNTERS from 1980 to 2021-03-16 Encounter Location Date Provider Diagnosis [facility] Urology [address] [phone] [place] [address] Mar, Jean Carlos Mobley IMMUNIZATIONS Vaccine Route Administration Date Status COVID-19 dose #2 given elsewhere Unspecified Unknown Aug Administered COVID-19 dose #1 given elsewhere Unspecified Unknown Jul 31, 2020 Administered SOCIAL HISTORY Sex Assigned At : Social History Observation Description Sex Assigned At Unknown Education: Question Answer Notes Level of Education: high school General Brown Audit Question Answer Notes Total Score: 2 Interpretation: Alcohol Education Language: Question Answer Notes Languages spoken: Indonesian Holiness: Question Answer Notes Holiness 99 Other Sexual Hx: Question Answer Notes [...] or less (1 point) REASON FOR REFERRAL No Information VITAL SIGNS No information MEDICATIONS Medication SIG (Take, Route, Frequency, Duration) Notes Start Da te End Date Status Ibuprofen 800 MG 1 tablet with food or milk as needed Ora lly Three times a day Active Valtrex 500 mg 1 tablet Orally twice daily for 3 to 5 days and as needed for outbreak for 30 Active Omeprazole 20 MG 1 capsule 30 minutes before morning meal Orally Once a day for 30 day(s) Active Losartan Potassium 50 MG 1 tablet Orally Once a day for 30 day(s ) Feb, Active Zoloft 100 MG 1 tablet Orally Once a day 100 +34=226 MG Active Zoloft 25 MG 1 tablet Orally Once a day Active Excedrin Migraine 250-250-65 MG 2 tablets as needed fo r pain Orally every 6 hrs/ as needed h/a Active PROCEDURES No Information RESULTS No Results REASON FOR VISIT 03/27/2021 appt MEDICAL (GENERAL) HISTORY Type Description Date Medical History anxiety Medical History depression Medical History migraine headache Medical History herpes type 1 Medical History Gestational diabetes Medical History Stress urinary incontinence Medical History Overweight Surgical History right breast biopsy benign fibroadenoma 12/2013 Surgical History tubal ligation 04/2016 Surgical History RALH & BS 09/01/2020 Surgical History hysterectomy 2020 Hospitalization History surgery Hospitalization History Childbirth Goals Section No Information Health Concerns No Information MEDICAL EQUIPMENT No Information MENTAL STATUS No Information FUNCTIONAL STATUS No Information ASSESSMENTS No Information PLAN OF TREATMENT Next Appt Details Provider Name:Jean Carlos Mobley, 2021-03-07 2 11:30:00 AM, [address], , [place], [address], Provider Name:Lynnette Dunn, 1 08:30:00 AM, [address], , [place], [address], Provider Name:Solange Flynn, 08:00:00 AM, [address] [facility], , [place], [address], Insurance Providers Payer Name Payer Address Payer Phone Insured Name Patient Relati onship to Insured Coverage Start Date Coverage End Date [facility] COMM[facility] PLAN [facility] [address] [facility] [address] EMI FISHER self
--- OUTSIDE RECORDS SUMMARY | 2021-03-30 08:36 | CCD ---
Author Author [facility] Organization [facility] Address Unknown Phone Unavailable Care Team Providers Care Peoplesoft Hcm Developer Name Role Phone Keegan Goldman Unavailable PROBLEMS Type Condition ICD9-CM Code [id number] Code Onset Dates Condition S tatus W/U Status Risk SNOMED Code Notes Problem Continuous leakage of urine N39.45 Active confirmed 804380642 Problem Stress incontinence in female N39.3 Active confirm ed 54402316 Problem Menstrual migraine 346.40 Active confirmed 2 7286851 Problem Menometrorrhagia N92.1 Active confirmed 314 801507 Problem Dyspareunia in female N94.10 Active confirmed 55949267 ALLERGIES Allergen (clinical drug ingredient) Drug/Non Drug Allergy do cumented on EMR Reaction Allergy Type Onset Date Status promethazine Phenergan([facility] Code:[address]-69) Hives Drug Allerg y Active Cipro Rash Non Drug Allergy Active Penicillin (For Allergies Use Only) hives Drug Allerg y Active ENCOUNTERS from 1980 to 2021-02-23 Encounter Location Date Provider Diagnosis [facility] Urology [address] [phone] [place] [address] 14 Feb, 2021 Keegan Goldman Stress incontinence in female N39.3 IMMUNIZATIONS No Information SOCIAL HISTORY Sex Assigned At : Social History Observation Description Sex Assigned At Unknown Education: Question Answer Notes Level of Education: high school General Brown Audit Question Answer Notes Total Score: 2 Interpretation: Alcohol Education Language: Question Answer Notes Languages spoken: Bengali Baptist: Question Answer Notes Baptist 99 Other Sexual Hx: Question Answer Notes [...] REASON FOR REFERRAL No Information VITAL SIGNS Weight 215 lbs Feb, Weight-kg 97.52 kg Feb, Height 69 in Feb, BMI 31.75 kg/m2 Feb, Heart Rate 91 /min Feb, Respiratory Rate 18 /min Feb, Temperature 98.7 degrees Fahrenheit Feb, Oximetry 96 Feb, Blood pressure systolic 146 mm Hg Feb, Blood pressure diastolic 82 mm Hg Feb, MEDICATIONS Medication SIG (Take, Route, Frequency, Duration) Notes Start Da te End Date Status Zoloft 100 MG 1 tablet Orally Once a day 100 +53=945 MG Active Valtrex 500 mg 1 tablet [...] Information RESULTS No Results REASON FOR VISIT please eval and treat 40 yr old female with continuous urinary leakage after par tial hyster in October MEDICAL (GENERAL) HISTORY Type Description Date Medical [...] Stress incontinence in female (ICD-10 - N39.3) Patient has significant urethral mobility. Referred the patient for follow-up with Dr. Mobley PLAN OF TREATMENT Treatment Notes Assessment Notes Clinical Notes Stress incontinence in female Patient patrick s significant urethral mobility. Referred the patient for follow-up with Dr. Mobley Next Appt Details Provider Name:Solange Delfino Flynn, 08:30:00 AM, [address] [facility], , [place], [address], Provider Name:Jean Carlos Mobley, 2021-02-05 9 02:15:00 PM, [address], , [place], [address], Insurance Providers Payer Name Payer Address Payer Phone Insured Name Patient Relati onship to Insured Coverage Start Date Coverage End Date [facility] COMMUNITY PLAN [facility] [address] [facility] [phone] EMI FISHER self
--- OUTSIDE RECORDS SUMMARY | 2021-03-30 08:36 | CCD ---
Author Author [facility] Organization [facility] Address Unknown Phone Unavailable Care Team Providers Care Rock Mason Apprentice Name Role Phone Servage, Solange Unavailable PROBLEMS Type Condition ICD9-CM Code [id number] Code Onset Dates Condition S tatus W/U Status Risk SNOMED Code Notes Problem Female incontinence N39.3 Active confirmed 37686922 Problem Stress incontinence in female N39.3 Active confirm ed 09731533 Problem Stress incontinence N39.3 Active confirmed 35116763 Problem Menstrual migraine 346.40 Active confirmed 2 3475456 Problem Menometrorrhagia N92.1 Active confirmed 314 797909 Problem Dyspareunia in female N94.10 Active confirmed 20982646 Problem Continuous leakage of urine N39.45 Active confirmed 719479339 ALLERGIES Allergen (clinical drug ingredient) Drug/Non Drug Allergy do cumented on EMR Reaction Allergy Type Onset Date Status promethazine Phenergan([facility] Code:[address]-94) Hives Drug Allerg y Active Cipro Rash Non Drug Allergy Active Penicillin (For Allergies Use Only) hives Drug Allerg y Active ENCOUNTERS from 1978 to 2021-03-10 Encounter Location Date Provider Diagnosis [facility] [address] [facility] [phone] [place] [address] Feb, Solange Servage Continuous leakage of urine N39.45 ; Blood pressure alteration R68.89 and Nonintractable headache, unspecified chronicity pattern, unspecified headache type R51.9 IMMUNIZATIONS Vaccine Route Administration Date Status COVID-19 [...] Language: Question Answer Notes Languages spoken: Indonesian Restoration: Question Answer Notes Restoration 99 Other Sexual Hx: Question Answer Notes [...] FOR REFERRAL No Information VITAL SIGNS Weight 214.6 lbs Feb, Weight-kg 97.34 kg Feb, Height 69 in Feb, BMI 31.69 kg/m2 Feb, Heart Rate 88 /min Feb, Respiratory Rate 18 /min Feb, Temperature 97.7 degrees Fahrenheit Feb, Oximetry 96 Feb, Blood pressure systolic 144 mm Hg Feb, Blood pressure diastolic 88 mm Hg Feb, MEDICATIONS Medication SIG (Take, [...] 1 tablet Orally Once a day 100 +24=131 MG Active Zoloft 25 MG 1 tablet Orally Once a day Active Excedrin Migraine 250-250-65 MG 2 tablets as needed fo r pain Orally every 6 hrs/ as needed h/a Active PROCEDURES No Information RESULTS No Results REASON FOR VISIT : 1 month follow up MEDICAL (GENERAL) HISTORY Type Description Date Medical [...] Treatment Notes Treatm ent Clinical Notes Feb, Continuous leakage of urine (ICD-10 - N39.45) Seen by Dr. Keegan Goldman, has an upcoming appointment with Dr. Mobley for evaluation questionable surgery Feb, Blood pressure alteration (ICD-10 - R68.89) Improvement noted on 25 mg, will increase to 50 mg daily she will continue to monitor her pressure if it drops below 110/70 she was instructed to cut the medication back in half to 25 mg, headaches have improved, follow-up scheduled. Feb, Nonintractable headache, uns pecified chronicity pattern, unspecified headache type (ICD-10 - R51.9) Headaches have improved with control of blood pressure PLAN OF TREATMENT Treatment Notes Assessment Notes Clinical Notes Continuous leakage of urine Seen by Dr. Keegan Goldman, has an upcoming appointment with Dr. Mobley for evaluation questionable surgery Blood pressure alteration Improvement no kristine on 25 mg, will increase to 50 mg daily she will continue to monitor her pressure if it drops below 110/70 she was instructed to cut the medication back in half to 25 mg, headaches have improved, follow-up scheduled. Nonintractable headache, unspecified chr onicity pattern, unspecified headache type Headaches have improved with control of blood pressure Next Appt Details June 2021 routine follow Reason: Provider Name:Jean Carlos Mobley, 2021-03-07 2 11:30:00 AM, [address], , [place], [address], Provider Name:Solange Flynn, 08:00:00 AM, [address] [facility], , [place], [address], Insurance Providers Payer Name Payer Address Payer Phone Insured Name Patient Relati onship to Insured Coverage Start Date Coverage End Date [facility] [address] [facility] [id number] EMI FISHER self
--- OUTSIDE RECORDS SUMMARY | 2021-03-30 08:36 | CCD ---
Author Author [facility] Organization [facility] Address Unknown Phone Unavailable Care Team Providers Care Cardiopulmonary Technologist Chief Name Role Phone ServageSolange Unavailable PROBLEMS Type Condition ICD9-CM Code [id number] Code Onset Dates Condition S tatus W/U Status Risk SNOMED Code Notes Problem Dyspareunia in female N94.10 Active confirmed 68907931 Problem Continuous leakage of urine N39.45 Active confirmed 041612521 Problem Menstrual migraine 346.40 Active confirmed 2 1320006 Problem Menometrorrhagia N92.1 Active confirmed 314 508758 ALLERGIES Allergen (clinical drug ingredient) Drug/Non Drug Allergy do cumented on EMR Reaction Allergy Type Onset Date Status promethazine Phenergan([facility] Code:[address]-08) Hives Drug Allerg y Active Cipro Rash Non Drug Allergy Active Penicillin (For Allergies Use Only) hives Drug Allerg y Active ENCOUNTERS from 1978 to 2021-02-12 Encounter Location Date Provider Diagnosis [address] [phone] [place] [address] Feb, Solange Servage IMMUNIZATIONS No Information SOCIAL HISTORY Sex Assigned At : Social History Observation Description Sex Assigned At Unknown Education: Question Answer Notes Level of Education: high school General Brown Audit Question Answer Notes Total Score: 2 Interpretation: Alcohol Education Language: Question Answer Notes Languages spoken: Guyanese Evangelical: Question Answer Notes Evangelical 99 Other Sexual Hx: Question Answer Notes [...] 1 tablet Orally Once a day 100 +21=419 MG Active Excedrin Migraine 250-250-65 MG 2 tablets as needed fo r pain Orally every 6 hrs/ as needed h/a Active Ibuprofen 800 MG 1 tablet with food or milk as needed Ora lly Three times a day Active Valtrex 500 mg 1 tablet Orally twice daily for 3 to 5 days and as needed for outbreak for 30 Active Zoloft 25 MG 1 tablet Orally Once a day Active Omeprazole 20 MG 1 capsule 30 minutes before morning meal Orally Once a day for 30 day(s) Active Losartan Potassium 25 MG 1 tablet Orally Once a day for 30 day(s ) Jan, Active PROCEDURES No Information RESULTS No Results [...] Information ASSESSMENTS No Information PLAN OF TREATMENT Medication Medication Name Sig Start Date Stop Date Losartan Potassium 25 MG 1 tablet Orally Once a day for 30 day(s ) Jan, Next Appt Details Provider Name:Keegan Goldman, 11:30:00 AM, [address], , [place], [address], Provider Name:Solange Flynn, 08:30:00 AM, [address] [facility] [phone], [place], [address], Insurance Providers Payer Name Payer Address Payer Phone Insured Name Patient Relati onship to Insured Coverage Start Date Coverage End Date [facility] [address] [facility] [phone] EMI FISHER self
--- OUTSIDE RECORDS SUMMARY | 2021-03-30 08:36 | CCD ---
Author Author [facility] Organization [facility] Address Unknown Phone Unavailable Care Team Providers Care Manager Content Name Role Phone Jean Carlos Mobley Unavailable PROBLEMS Type Condition ICD9-CM Code OJE43-JD Code Onset Dates Condition S tatus W/U Status Risk SNOMED Code Notes Problem Female incontinence N39.3 Active confirmed 33331184 Problem Stress incontinence in female N39.3 Active confirm ed 31298372 Problem Stress incontinence N39.3 Active confirmed 95262256 Problem Menstrual migraine 346.40 Active confirmed 2 8857530 Problem Menometrorrhagia N92.1 Active confirmed 314 619745 Problem Dyspareunia in female N94.10 Active confirmed 62895523 Problem Continuous leakage of urine N39.45 Active confirmed 856783006 ALLERGIES Allergen (clinical drug ingredient) Drug/Non Drug Allergy do cumented on EMR Reaction Allergy Type Onset Date Status promethazine Phenergan([facility] Code:[address]-08) Hives Drug Allerg y Active Cipro Rash Non Drug Allergy Active Penicillin (For Allergies Use Only) hives Drug Allerg y Active ENCOUNTERS from 1978 to 2021-03-05 Encounter Location Date Provider Diagnosis [facility] [address] [phone] [place] [address] Feb, Jean Carlos Mobley Stress incontinence N39.3 IMMUNIZATIONS Vaccine Route Administration Date Status COVID-19 [...] Education Language: Question Answer Notes Languages spoken: Maltese Synagogue: Question Answer Notes Synagogue 99 Other Sexual Hx: Question Answer Notes [...] FOR REFERRAL No Information VITAL SIGNS Weight 214 lbs Feb, Height 69 in Feb, BMI 31.60 kg/m2 Feb, Heart Rate 112 /min Feb, Respiratory Rate 18 /min Feb, Temperature 98 degrees Fahrenheit Feb, Oximetry 95 Feb, Blood pressure systolic 138 mm Hg Feb, Blood pressure diastolic 76 mm Hg Feb, MEDICATIONS Medication SIG (Take, [...] 1 tablet Orally Once a day 100 +81=679 MG Active Zoloft 25 MG 1 tablet Orally Once a day Active Excedrin Migraine 250-250-65 MG 2 tablets as needed fo r pain Orally every 6 hrs/ as needed h/a Active PROCEDURES No Information RESULTS No Results REASON FOR VISIT surgery consent MEDICAL (GENERAL) HISTORY Type Description Date Medical [...] Treatm ent Clinical Notes Feb, Stress incontinence (ICD-10 - N39.3) PLAN OF TREATMENT Treatment Notes Test Name Order Date Comprehensive Metabolic Profile (CMP) 2021-03-04 CBC - Complete Blood Count 2021-03-04 URINE CULTURE 2021-03-04 UA URINALYSIS 2021-03-04 [facility] Chest, 2 view (PA\Lat) 2021-03-04 Next Appt Details Local cystoscopy Reason:Stress incontine nce Provider Name:Jean Carlos Mobley, 2021-03-07 2 11:30:00 AM, [address] , , [place], [address], Provider Name:Solange Flynn, 08:00:00 AM, [address] [facility], , [place], [address], Follow Up:Local cystoscopyStress incontinence Insurance Providers Payer Name Payer Address Payer Phone Insured Name Patient Relati onship to Insured Coverage Start Date Coverage End Date [facility] [address] [facility] [phone] EMI FISHER self
--- OUTSIDE RECORDS SUMMARY | 2021-03-30 08:36 | CCD ---
Author Author [facility] Organization [facility] Address Unknown Phone Unavailable Care Team Providers Care Element Burner Name Role Phone Servage, Solange Unavailable PROBLEMS Type Condition ICD9-CM Code [id number] Code Onset Dates Condition S tatus W/U Status Risk SNOMED Code Notes Problem Continuous leakage of urine N39.45 Active confirmed 608586739 Problem Stress incontinence in female N39.3 Active confirm ed 43517991 Problem Female incontinence N39.3 Active confirmed 13784869 Problem Menstrual migraine 346.40 Active confirmed 2 5285040 Problem Menometrorrhagia N92.1 Active confirmed 314 204317 Problem Dyspareunia in female N94.10 Active confirmed 09943838 ALLERGIES Allergen (clinical drug ingredient) Drug/Non Drug Allergy do cumented on EMR Reaction Allergy Type Onset Date Status Phenergan Hives Drug Allergy Active Cipro Rash Non Drug Allergy Active Penicillin (For Allergies Use Only) hives Drug Allerg y Active ENCOUNTERS from 1978 to 2021-02-24 Encounter Location Date Provider Diagnosis [facility] [address] [phone] [place] [address] Feb, 2021 Solange Servage Continuous leakage of urine N39.45 IMMUNIZATIONS No Information SOCIAL HISTORY Sex Assigned At : Social History Observation Description Sex Assigned At Unknown Education: Question Answer Notes Level of Education: high school General Brown Audit Question Answer Notes Total Score: 2 Interpretation: Alcohol Education Language: Question Answer Notes Languages spoken: Amharic Orthodoxy: Question Answer Notes Orthodoxy 99 Other Sexual Hx: Question Answer Notes [...] 1 tablet Orally Once a day 100 +63=710 MG Active Valtrex 500 mg 1 tablet [...] Information RESULTS No Results REASON FOR VISIT No Information MEDICAL (GENERAL) HISTORY Type Description Date Medical [...] urine (ICD-10 - N39.45) PLAN OF TREATMENT Next Appt Details Provider Name:Solange Flynn, 08:30:00 AM, [address] [facility], , [place], [address], Provider Name:Jean Carlos Mobley, 2021-02-2 9 02:15:00 PM, [address], , [place], [address], Insurance Providers Payer Name Payer Address Payer Phone Insured Name Patient Relati onship to Insured Coverage Start Date Coverage End Date [facility] [address] [facility] [id number] EMI FISHER self
--- OUTSIDE RECORDS SUMMARY | 2021-03-30 08:37 | CCD ---
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 31.75 kg/m2 eCW1 ([facility]) Heart rate 91 /min 91 /min eCW1 ([facility]) Respiratory rate 18 /min 18 /min eCW1 ([facility]) Body temperature 98.7 [degF] 98.7 [degF] eCW1 ( [facility]) Systolic blood pressure 146 mm[Hg] 146 mm[Hg] e CW1 ([facility]) Diastolic blood pressure 82 mm[Hg] 82 mm[Hg] eCW1 ([facility]) Body weight 215.2 [lb_av] 215.2 [lb_av] eCW1 ([facility]) Systolic blood pressure 152 mm[Hg] 152 mm[Hg] e CW1 ([facility]) Diastolic blood pressure 92 mm[Hg] 92 mm[Hg] eCW1 ([facility]) Body weight 97.61 kg 97.61 kg eCW1 ([facility]) Body height 69 [in_i] 69 [in_i] eCW1 ([facility]) Body mass index (BMI) [Ratio] 31.78 kg/m2 31.78 kg/m2 eCW1 ([facility]) Heart rate 84 /min 84 /min eCW1 ([facility]) Respiratory rate 18 /min 18 /min eCW1 ([facility]) Body temperature 97.7 [degF] 97.7 [degF] eCW1 ( [facility]) Systolic blood pressure 152 mm[Hg] 152 mm[Hg] M EDENT ([facility]) Diastolic blood pressure 93 mm[Hg] 93 mm[Hg] MEDENT ([facility]) Heart rate 87 /min 87 /min MEDENT ([facility]) Respiratory rate 14 /min 14 /min MEDENT ( [facility]) Oxygen saturation in Arterial blood by Pulse oximetry 98 % 98 % MEDENT ([facility]) Body temperature 97.8 [degF] 97.8 [degF] MEDENT ([facility]) Body weight 220.00 [lb_av] 220.00 [lb_av] MEDEN T ([facility]) Body height 69 [in_i] 69 [in_i] MEDENT ([facility]) 5'9" Body mass index (BMI) [Ratio] 32.5 kg/m2 32.5 k g/m2 MEDENT ([facility]) Body weight 219 [lb_av] 219 [lb_av] eCW1 ([facility]) Body height 69 [in_i] 69 [in_i] eCW1 ([facility]) Body mass index (BMI) [Ratio] 32.34 kg/m2 32.34 kg/m2 eCW1 ([facility]) Systolic blood pressure 132 mm[Hg] 132 mm[Hg] e CW1 ([facility]) Diastolic blood pressure 70 mm[Hg] 70 mm[Hg] eCW1 ([facility]) Body weight 217.6 [lb_av] 217.6 [lb_av] eCW1 ([facility]) Body height 69 [in_i] 69 [in_i] eCW1 ([facility]) Body mass index (BMI) [Ratio] 32.13 kg/m2 32.13 kg/m2 eCW1 ([facility]) Systolic blood pressure 136 mm[Hg] 136 mm[Hg] e CW1 ([facility]) Diastolic blood pressure 82 mm[Hg] 82 mm[Hg] eCW1 ([facility]) Body weight 214 [lb_av] 214 [lb_av] eCW1 ([facility]) Body height 69 [in_i] 69 [in_i] eCW1 ([facility]) Body mass index (BMI) [Ratio] 31.6 kg/m2 31.6 k g/m2 eCW1 ([facility]) Systolic blood pressure 144 mm[Hg] 144 mm[Hg] e CW1 ([facility]) Diastolic blood pressure 94 mm[Hg] 94 mm[Hg] eCW1 ([facility]) Body weight 212.0 [lb_av] 212.0 [lb_av] eCW1 ([facility]) Body height 67.75 [in_i] 67.75 [in_i] eCW1 ([facility]) Body mass index (BMI) [Ratio] 32.47 kg/m2 32.47 kg/m2 eCW1 ([facility]) Systolic blood pressure 132 mm[Hg] 132 mm[Hg] e CW1 ([facility]) Diastolic blood pressure 92 mm[Hg] 92 mm[Hg] eCW1 ([facility]) Body temperature 99.3 [degF] 99.3 [degF] MEDENT ([facility]) Body weight 212.00 [lb_av] 212.00 [lb_av] MEDEN T ([facility]) Body height 69 [in_i] 69 [in_i] MEDENT ([facility]) 5'9" Body mass index (BMI) [Ratio] 31.3 kg/m2 31.3 k g/m2 MEDENT ([facility]) Systolic blood pressure 148 mm[Hg] 148 mm[Hg] M EDENT ([facility]) Diastolic blood pressure 92 mm[Hg] 92 mm[Hg] MEDENT ([facility]) Heart rate 91 /min 91 /min MEDENT ([facility]) Respiratory rate 14 /min 14 /min MEDENT ( [facility]) Oxygen saturation in Arterial blood by Pulse oximetry 98 % 98 % MEDENT ([facility]) Diastolic blood pressure 68 mm[Hg] 68 mm[Hg] eCW1 ([facility]) Body weight 210.8 [lb_av] 210.8 [lb_av] eCW1 ([facility]) Body weight 95.62 kg 95.62 kg W1 ([facility]) Body height 67.75 [in_i] 67.75 [in_i] eCW1 ([facility]) Body mass index (BMI) [Ratio] 32.29 kg/m2 32.29 kg/m2 eCW1 ([facility]) Systolic blood pressure 120 mm[Hg] 120 mm[Hg] e CW1 ([facility]) Body weight 213.6 [lb_av] 213.6 [lb_av] eCW1 ([facility]) Body height 67.75 [in_i] 67.75 [in_i] eCW1 ([facility]) Body mass index (BMI) [Ratio] 32.71 kg/m2 32.71 kg/m2 W1 ([facility]) Systolic blood pressure 146 mm[Hg] 146 mm[Hg] e CW1 ([facility]) Diastolic blood pressure 80 mm[Hg] 80 mm[Hg] eCW1 ([facility]) Patient Treatment Plan of Care Planned Activity Planned Date Details Description Data Source (s) Losartan Potassium 25 MG Oral Tablet 01/28/2021 12:00:00 AM EDT [facility] ([facility]) Losartan Potassium 25 MG Oral Tablet 01/28/2021 12:00:00 AM EDT eCW1 ([facility]) Acetaminophen 325 MG / Oxycodone Hydrochloride 5 MG Or al Tablet [Percocet] 08/29/2020 12:00:00 AM EDT eCW1 ([facility]) Fluconazole 150 MG Oral Tablet [Diflucan] 05/09/2020 12:00:00 AM ES T eCW1 ([facility]) Fluconazole 150 MG Oral Tablet [Diflucan] 05/09/2020 12:00:00 AM ES T eCW1 ([facility])
--- OUTSIDE RECORDS SUMMARY | 2021-03-30 08:37 | CCD ---
Author Author [facility] Organization 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 Name Role Phone ServageSolange Unavailable PROBLEMS Type Condition ICD9-CM Code SGI31-IH Code Onset Dates Condition S tatus W/U Status Risk SNOMED Code Notes Problem Dyspareunia in female N94.10 Active confirmed 59129235 Problem Continuous leakage of urine N39.45 Active confirmed 139907145 Problem Menstrual migraine 346.40 Active confirmed 2 9597267 Problem Menometrorrhagia N92.1 Active confirmed 314 351640 ALLERGIES Allergen (clinical drug ingredient) Drug/Non Drug Allergy do cumented on EMR Reaction Allergy Type Onset Date Status promethazine Phenergan([facility] Code:[address]-49) Hives Drug Allerg y Active Cipro Rash Non Drug Allergy Active Penicillin (For Allergies Use Only) hives Drug Allerg y Active ENCOUNTERS from 1978 to 2021-02-03 Encounter Location Date Provider Diagnosis [address] [phone] [place] [address] Jan, Solange Servage Snoring R06.83 ; Continuous leakage of urine N39.45 ; Family history of diabetes mellitus Z83.3 ; Blood pressure alteration R68.89 ; Nonintractable headache, unspecified chronicity pattern, unspecified headache type R51.9 and Encounter to establish care with new doctor Z76.89 IMMUNIZATIONS No Information SOCIAL HISTORY Sex Assigned At : Social History Observation Description Sex Assigned At Unknown Education: Question Answer Notes Level of Education: high school [employer] Question Answer Notes Total Score: 2 Interpretation: Alcohol Education Language: Question Answer Notes Languages spoken: Bangladeshi Anglican: Question Answer Notes Anglican 99 Other Sexual Hx: Question Answer Notes [...] point) REASON FOR REFERRAL from 1978 to 2021-02-03 Reason please eval and treat 40 yr old female with continuous urinary leakage after partial hyster in October now wears pads 27/12 Diagnosis 1 Continuous leakage of urine (N39.45) Referral Organization [facility] Referring Provider First Name Solange Referring Provider Last Name Servage Referring Provider Specialty Family Medicine Referred Organization [facility] Urology Referred Provider Gerald Lopez Referred Address [phone] ,[place], [place],[address] Referred Provider Specialty Urology Referral Priority Routine General Notes Tali Dao 01/28/2021 10: 01:23 AM > referral faxed Reason please eval and treat for ? sleep apnea heavy snoring and daytime fatigue Diagnosis 1 Snoring (R06.83) Referral Organization [facility] Referring Provider First Name Solange Referring Provider Last Name Servage Referring Provider Specialty Family Medicine Referred Provider Mei Valente Referred Provider Specialty Pulmonary Diseases Referral Priority Routine General Notes Tali Dao 01/28/2021 10: 02:52 AM > referral faxed VITAL SIGNS Weight 215.2 lbs Jan, Weight-kg 97.61 kg Jan, Height 69 in Jan, BMI 31.78 kg/m2 Jan, Heart Rate 84 /min Jan, Respiratory Rate 18 /min Jan, Temperature 97.7 degrees Fahrenheit Jan, Oximetry 97 Jan, Blood pressure systolic 152 mm Hg Jan, Blood pressure diastolic 92 mm Hg Jan, MEDICATIONS Medication SIG (Take, Route, Frequency, Duration) Notes Start Da te End Date Status Zoloft 100 MG 1 tablet Orally Once a day 100 +55=305 MG Active Excedrin Migraine 250-250-65 MG 2 [...] Information RESULTS No Results REASON FOR VISIT to establish MEDICAL (GENERAL) HISTORY Type Description Date Medical [...] Notes Treatment Notes Treatm ent Clinical Notes Jan, Snoring (ICD-10 - R06.83) Would like to be referred to pulmonary for testing Jan, Continuous leakage of urine (ICD-10 - N39.45) Will refer to urology services, discussed physical therapy, she thinks she is too far gone for that to work, she has been doing Kegel exercises with no effect she is aware of surgical interventions, Botox. Medications. Jan, Family history of diabetes mellitus (ICD-10 - Z8 3.3) Family history of diabetes, and she had gestational diabetes Jan, Blood pressure alteration (ICD-10 - R68.89) Will start low-dose losartan 25 mg daily, she will monitor blood pressures at work and fax them to the office risk and benefits of medication discussed Jan, Nonintractable headache, uns pecified chronicity pattern, unspecified headache type (ICD-10 - R51.9) Feel headaches are stress related from pressure, will monitor and see if they improved Jan, Encounter to establish care with new doctor (ICD -10 - Z76.89) Jan, Other labs in chart candice carbajal, ordered labs for when she returns PLAN OF TREATMENT Medication Medication Name Sig Start Date Stop Date Losartan Potassium 25 MG 1 tablet Orally Once a day for 30 day(s ) Jan, Treatment Notes Assessment Notes Clinical Notes Snoring Would like to be ref erred to pulmonary for testing Continuous leakage of urine Will refer t o urology services, discussed physical therapy, she thinks she is too far gone for that to work, she has been doing Kegel exercises with no effect she is aware of surgical interventions, Botox. Medications. Family history of diabetes mellitus Fami ly history of diabetes, and she had gestational diabetes Blood pressure alteration Will start low -dose losartan 25 mg daily, she will monitor blood pressures at work and fax them to the office risk and benefits of medication discussed Nonintractable headache, unspecified chr onicity pattern, unspecified headache type Feel headaches are stress re lated from pressure, will monitor and see if they improved Future Test Test Name Order Date Comprehensive Metabolic Profile (CMP) 20210216 HEMOGLOBIN A1c [id number] Referrals Referral Date Details please eval and treat 40 yr old female with continuous urinary leakage after partial hyster in October now wears pads 27/12, Gerald Lopez, [address], [place], [address], please eval and treat for ? sleep apnea heavy snoring and daytime fatigue, Mei Valente Next Appt Details 1 month follow up Reason: Provider Name:Keegan Goldman, 11:30:00 AM, [address], , [place], [address], Provider Name:Solange Flynn, 08:30:00 AM, [address] [facility], , [place], [address], Insurance Providers Payer Name Payer Address Payer Phone Insured Name Patient Relati onship to Insured Coverage Start Date Coverage End Date [facility] [address] [facility] [phone] EMI FISHER self
[2021-03-30] MEDS ORDERED: cefTRIAXone SOD 1 GM in D5W MINI-BAG PLUS 50 ML IV ONE (09:35)
[2021-03-30] MEDS ORDERED: fentaNYL 100 MCG/2 ML INJECTION (J3010) As Ordered ONE (09:42)
[2021-03-30] MEDS ORDERED: MIDAZOLAM INJ 2MG/2ML VIAL (J2250 PER 1MG) As Ordered ONE (09:42)
[2021-03-30] MEDS ORDERED: LIDOCAINE 2% 100MG/5ML SDV (FOR ANES.) As Ordered ONE (09:43)
[2021-03-30] MEDS ORDERED: propofoL 200 MG/20 ML VIAL As Ordered ONE ×2 (09:44→11:24)
[2021-03-30] MEDS ORDERED: LIDOCAINE W/EPINEPHRINE 1% 20ML VIAL As Ordered ONE (09:45)
[2021-03-30] MEDS ORDERED: ACETAMINOPHEN 1000MG 100ML IV BTL (OFIRMEV) (J0131 PER 10MG) As Ordered ONE (10:14)
[2021-03-30] MEDS ORDERED: METHYLENE BLUE 0.5% (5MG/ML) 10 ML AMP (PROVAYBLUE) As Ordered ONE (10:25)
[2021-03-30] MEDS ORDERED: PHENYLephrine 500MCG 5ML (100MCG/ML) SYRINGE As Ordered ONE (10:30)
[2021-03-30] MEDS ORDERED: ePHEDrine SULFATE 25 MG/5 ML(5MG/ML) SYRINGE As Ordered ONE (10:30)
[2021-03-30] MEDS ORDERED: dexameTHASONE 4 MG/ML 1ML VIAL (J1100 PER 1MG) As Ordered ONE (10:57)
[2021-03-30] MEDS ORDERED: ONDANSETRON 4MG/2ML VIAL As Ordered ONE (10:57)
[2021-03-30] MEDS ORDERED: SUGAMMADEX SODIUM 500 MG/5 ML VIAL (BRIDION) As Ordered ONE (10:59)
[2021-03-30] MEDS ORDERED: ROCURONIUM BROMIDE 50 MG/5 ML VIAL As Ordered ONE ×2 (11:27→11:28)
--- NOTE | 2021-03-30 11:54 | ROOPDOC ---
[facility] Report Of Operation Report of Operation DATE OF PROCEDURE: 03/30/21 PREPROCEDURE DIAGNOSES: [stress incontinence]. POSTPROCEDURE DIAGNOSES: [same]. PROCEDURE PERFORMED: [pubovaginal sling (desara) and cysto and catheter placement]. SURGEON: [Ori Damian, CHEMICAL STRENGTH TESTER: [none], ANESTHESIA: [general et and local]. ESTIMATED BLOOD LOSS: Approximately [100] mL. COMPLICATIONS: [none]. REMARKS: [40yo wf with rancho. Options discussed. Pt opted for sling. No guarantees given. Risks discussed including infection, pain, bleeding, scarring, injury to gu tract, persistent incontinence, retention, difficulty voiding, erosion, extrusion and others. Informed consent obtained.]. FINDINGS: SPECIMENS REMOVED: [Urine for culture] PROCEDURE NOTE: . DESCRIPTION OF PROCEDURE: [I met with the patient in the preop area and surgery was again discussed. Questions answered. Patient wished to proceed. Patient brought to the OR room. Surgery done under coverage of an IV antibiotic. General anesthesia was secured. Dorsolithotomy position. Well-padded. Prepping and draping in the usual sterile fashion. Timeout performed. A urethral catheter was placed. Urine collected for culture. Labia splayed out using stitches. Weighted vaginal speculum used. Landmarks identified including bladder neck. Balloon of catheter easily palpable. Anterior vaginal wall infiltrated with 1% lidocaine with epinephrine for hydrodissection. Incision made in a longitudinal fashion. Flaps were created. Vaginal mucosa noted to be fragile. Endopelvic fascia opened on each side using Metzenbaum scissors. Up above, 2 stab incisions were made in the suprapubic area each about 1 inch off the midline. Suspension needles were passed from above. They exited the vaginal incision. Before passing the needles, the bladder was emptied via the catheter. After passing the needles, the catheter was removed and cystoscopy was performed. No injury to the bladder or urethra was noted. The urethral catheter was replaced. The desara sling was attached to the suspension needles after which the suspension needles were pulled up. The sling was placed underneath the urethra. It was flat and not rolled up. I was pleased with the positioning. By inspecting the sling under the urethra and palpating the sling under the urethra, I decided upon the degree of tension. Cystoscopy was performed once again. No injury was noted. Once satisfied, the vaginal incision was closed with running 2-0 Vicryl. Again, the mucosa was noted to be fragile. In addition to the running 2-0 Vicryl, a few other simple interrupted 2-0 Vicryl stitches were placed. The vagina was packed with Kerlix covered with lubrication. The urethral catheter remained at the end of surgery. Up above, the ends of the sling were cut flush with the skin. The 2 stab incisions were closed with 3-0 Vicryl for the subcutaneous tissue and 4-0 Monocryl for the skin. The suprapubic area was cleaned and dried. Steri-Strips were placed. The incisions were infiltrated with local. Patient tolerated surgery well left the room in satisfactory condition. Counts were correct. The labial stitches were removed. ENEDINA DAMIAN MD Mar 30, 2021 11:54
[2021-03-30] MEDS ORDERED: HYDR-3713 PO (11:56)
[2021-03-30] MEDS ORDERED: BACT800T5 PO (11:56)
[2021-03-30] MEDS ORDERED: LR 1,000 ML IV SCH ×2 (12:15)
[2021-03-30] MEDS ORDERED: oxyCODONE 5MG TAB PO PRN (12:15)
[2021-03-30] MEDS ORDERED: fentaNYL 100 MCG/2 ML INJECTION (J3010) IV PRN (12:15)
[2021-03-30] MEDS ORDERED: ONDANSETRON 4MG/2ML VIAL IV PRN (12:15)
[2021-03-30 13:46] VITALS: BP 156/83
== END 2021-03-30 14:36 | disposition home or self-care (01) ==
LOC: M SDC 08:29
PROVIDERS: ATTEND Urology
DX: N39.3 Stress incontinence (female) (male) (principal); I10 Essential (primary) hypertension; K21.9 Gastro-esophageal reflux disease without esophagitis; R91.1 Solitary pulmonary nodule; G43.909 Migraine, unspecified, not intractable, without status migrainosus; Z79.899 Other long term (current) drug therapy; Z88.0 Allergy status to penicillin; Z88.1 Allergy status to other antibiotic agents; F41.9 Anxiety disorder, unspecified; F32.9 Major depressive disorder, single episode, unspecified
CPT/HCPCS: 57288; C1771; J0131; J1100; J2250; J2370; J2405; J3010; Q9968

== ENCOUNTER 2021-04-01 08:21 | Emergency (ER) | payer OTHER ==
[~2021-04-01] VITALS: Ht 175.3 cm; Wt 98.2 kg
[~2021-04-01 08:21] MED LIST changes: +BACT800T5 PO; +HYDR-3713 PO; -LR 1,000 ML IV ONE
[2021-04-01] MEDS ORDERED: oxyBUTYnin 5 MG TAB PO STA (08:39)
[2021-04-01] MEDS ORDERED: PERCOCET 5MG/325MG TAB PO ONE (09:50)
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
[2021-04-01] MEDS ORDERED: LIDOCAINE 2% 5ML JELLY UROJET TOP ONE (14:25)
[2021-04-01] MEDS ORDERED: NITR1CAP11 PO (15:21)
[2021-04-01 15:42] VITALS: BP 123/76
[2021-04-02] MEDS ORDERED: OXYB5TAB10 PO (01:21)
== END 2021-04-01 15:48 | disposition home or self-care (01) ==
LOC: M ED 08:21 → EDBD 08:21 → M ED 15:48
DX: R33.9 Retention of urine, unspecified (principal); E11.9 Type 2 diabetes mellitus without complications; I10 Essential (primary) hypertension; F41.9 Anxiety disorder, unspecified; Z88.0 Allergy status to penicillin; Z88.1 Allergy status to other antibiotic agents; Z79.899 Other long term (current) drug therapy

== ENCOUNTER 2021-04-01 23:54 | Emergency (ER) | payer OTHER ==
[~2021-04-01] VITALS: Ht 175.3 cm; Wt 98.2 kg
[~2021-04-01 23:54] MED LIST changes: +NITR1CAP11 PO
[2021-04-01 23:55] VITALS: BP 144/65
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
[2021-04-02] MEDS ORDERED: oxyBUTYnin 5 MG TAB PO ONE (01:05)
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
[2021-04-02] MEDS ORDERED: OXYB5TAB10 PO (01:21)
== END 2021-04-02 01:30 | disposition home or self-care (01) ==
LOC: M ED 23:54
DX: N32.89 Other specified disorders of bladder (principal); I10 Essential (primary) hypertension; Z79.899 Other long term (current) drug therapy; Z88.0 Allergy status to penicillin; Z88.1 Allergy status to other antibiotic agents; Z98.890 Other specified postprocedural states

== ENCOUNTER → 2021-04-14 | Outpatient (REF) | payer OTHER ==
[~2021-04-14] MED LIST changes: +OXYB5TAB10 PO
[2021-04-14 18:38] LABS: APPEARANCE, URINE HAZY (CLEAR); BACTERIA, URINE AUTO 1+ (NEGATIVE); BILIRUBIN, URINE AUTO NEGATIVE (NEGATIVE); BLOOD, URINE BLOOD 1+ (NEGATIVE); COLOR, URINE YELLOW (YELLOW); GLUCOSE, URINE (UA) AUTO NEGATIVE (NEGATIVE); KETONE, URINE AUTO NEGATIVE (NEGATIVE); LEUKOCYTE ESTERASE, URINE AUTO 2+ (NEGATIVE); MUCUS, URINE SMALL (NEGATIVE); NITRITE, URINE AUTO NEGATIVE (NEGATIVE); PROTEIN, URINE AUTO 1+ mg/dL (NEGATIVE); RBC, URINE AUTO 7 /HPF (0-3); SPECIFIC GRAVITY URINE AUTO 1.028 (1.002-1.035); SQUAMOUS EPITHELIAL CELL UR AU 3 /HPF (0-6); UROBILINOGEN, URINE AUTO 0.2 mg/dL (0.0-2.0); WBC, URINE AUTO 11 /HPF (0-3)
== END ==
LOC: M SMT 16:45
PROVIDERS: ATTEND Urology
DX: R39.13 Splitting of urinary stream (principal)

== ENCOUNTER → 2021-04-29 | Outpatient (REF) | payer OTHER ==
[2021-04-29 13:49] LABS: APPEARANCE, URINE HAZY (CLEAR); BACTERIA, URINE AUTO NEGATIVE (NEGATIVE); BILIRUBIN, URINE AUTO NEGATIVE (NEGATIVE); BLOOD, URINE BLOOD NEGATIVE (NEGATIVE); COLOR, URINE YELLOW (YELLOW); GLUCOSE, URINE (UA) AUTO NEGATIVE (NEGATIVE); KETONE, URINE AUTO NEGATIVE (NEGATIVE); LEUKOCYTE ESTERASE, URINE AUTO NEGATIVE (NEGATIVE); MUCUS, URINE SMALL (NEGATIVE); NITRITE, URINE AUTO NEGATIVE (NEGATIVE); PROTEIN, URINE AUTO NEGATIVE (NEGATIVE); RBC, URINE AUTO 0 /HPF (0-3); SPECIFIC GRAVITY URINE AUTO 1.018 (1.002-1.035); SQUAMOUS EPITHELIAL CELL UR AU 5 /HPF (0-6); UROBILINOGEN, URINE AUTO 0.2 mg/dL (0.0-2.0); WBC, URINE AUTO 0 /HPF (0-3)
== END ==
LOC: M SMT 12:55
PROVIDERS: ATTEND Urology
DX: R35.0 Frequency of micturition (principal)

== ENCOUNTER → 2021-11-04 | Outpatient (REF) | payer OTHER, MEDICAID ==
[~2021-11-04] MED LIST changes: +LOSA50TA28 PO; -LOSA50TA88 PO
== END ==
LOC: M WUC 20:02
PROVIDERS: ATTEND Internal Medicine
DX: R30.0 Dysuria (principal)

== ENCOUNTER → 2021-11-16 | Outpatient (REF) | payer OTHER, MEDICAID | LOC: M LAB REF 15:52 | PROVIDERS: ATTEND Physician Assistant | DX: N39.0 Urinary tract infection, site not specified (principal) ==

== ENCOUNTER → 2021-12-22 | Outpatient (REF) | payer OTHER ==
[2021-12-22 21:06] LABS: GC DNA AMPLIFICATION NEGATIVE (NEGATIVE)
== END ==
LOC: M SFHCPLAZ 16:42
PROVIDERS: ATTEND Physician Assistant
DX: R30.0 Dysuria (principal)

== ENCOUNTER → 2022-01-22 | Outpatient (REF) | payer OTHER ==
[~2022-01-22] MED LIST changes: +[UNRECOGNIZED DRUG - CODE] PO; -[UNRECOGNIZED DRUG - CODE] PO
== END ==
LOC: M SFHCPLAZ 13:06
PROVIDERS: ATTEND Nurse Practitioner Adult Health
DX: N76.0 Acute vaginitis (principal)

== ENCOUNTER → 2022-03-24 | Outpatient (REF) | payer OTHER, MEDICAID ==
[2022-03-24 22:59] LABS: RSV AMPLIFICATION NEGATIVE (NEGATIVE)
== END ==
LOC: M LAB REF 21:38
PROVIDERS: ATTEND Physician Assistant
DX: J06.9 Acute upper respiratory infection, unspecified (principal)

== ENCOUNTER → 2022-11-10 | Outpatient (CLI) | payer OTHER ==
[~2022-11-10] MED LIST changes: +LIDO15SO MT; -LIDO2SOL17 MT
[2022-11-10 16:03] LABS: APPEARANCE, URINE HAZY (CLEAR); BACTERIA, URINE AUTO NEGATIVE (NEGATIVE); BILIRUBIN, URINE AUTO NEGATIVE (NEGATIVE); BLOOD, URINE BLOOD NEGATIVE (NEGATIVE); COLOR, URINE YELLOW (YELLOW); GLUCOSE, URINE (UA) AUTO NEGATIVE (NEGATIVE); KETONE, URINE AUTO NEGATIVE (NEGATIVE); LEUKOCYTE ESTERASE, URINE AUTO NEGATIVE (NEGATIVE); MUCUS, URINE SMALL (NEGATIVE); NITRITE, URINE AUTO NEGATIVE (NEGATIVE); PROTEIN, URINE AUTO NEGATIVE (NEGATIVE); RBC, URINE AUTO 1 /HPF (0-3); SPECIFIC GRAVITY URINE AUTO 1.028 (1.002-1.035); SQUAMOUS EPITHELIAL CELL UR AU 4 /HPF (0-6); WBC, URINE AUTO 2 /HPF (0-3)
[2022-11-10 17:31] LABS: BASO % 0.5 % (0.0-1.0); EOS # 0.1 10^3/uL (0.0-0.5); EOS % 1.6 % (0.0-3.0); HEMATOCRIT 41.4 % (36.0-47.0); HEMOGLOBIN 13.4 g/dl (12.0-15.5); LYMPH # 2.4 10^3/uL (1.5-5.0); LYMPH % 28.2 % (24.0-44.0); MEAN CORPUSCULAR HEMOGLOBIN 30.6 pg (27.0-33.0); MEAN CORPUSCULAR HGB CONC 32.4 g/dl (32.0-36.5); MEAN CORPUSCULAR VOLUME 94.5 fl (80.0-96.0); MONO # 0.5 10^3/uL (0.0-0.8); MONO % 6.2 % (2.0-8.0); NEUTROPHILS # 5.5 10^3/uL (1.5-8.5); NEUTROPHILS % 63.2 % (36.0-66.0); PLATELET COUNT, AUTOMATED 193 10^3/uL (150-450); RED BLOOD COUNT 4.38 10^6/uL (4.00-5.40); WHITE BLOOD COUNT 8.7 10^3/uL (4.0-10.0)
[2022-11-10 17:43] LABS: ALKALINE PHOSPHATASE 80 U/L (46-116); ALT/SGPT 17 U/L (7.0-40); AST/SGOT 10 U/L (<34); BILIRUBIN,TOTAL 0.4 MG/DL (0.3-1.2); BLOOD UREA NITROGEN 13 MG/DL (9-23); CALCIUM LEVEL 8.3 MG/DL (8.5-10.1); CARBON DIOXIDE LEVEL 28 MMOL/L (20-31); CHLORIDE LEVEL 106 MMOL/L (98-107); CREATININE FOR GFR 0.53 MG/DL (0.55-1.30); GLOMERULAR FILTRATION RATE > 60.0 (>58); GLUCOSE, FASTING 137 MG/DL (60-100); POTASSIUM SERUM 4.1 MMOL/L (3.5-5.1); SODIUM LEVEL 140 MMOL/L (136-145); TOTAL PROTEIN 6.8 G/DL (5.7-8.2)
== END ==
LOC: M PLALAB 14:55
PROVIDERS: ATTEND Internal Medicine Hematology
DX: Z01.818 Encounter for other preprocedural examination (principal)

== ENCOUNTER → 2023-02-01 | Outpatient (REF) | payer OTHER | LOC: M SFHCPLAZ 13:51 | PROVIDERS: ATTEND Nurse Practitioner Adult Health | DX: Z53.9 Procedure and treatment not carried out, unspecified reason (principal) ==

== ENCOUNTER → 2023-02-02 | Outpatient (CLI) | payer OTHER ==
[2023-02-02 11:40] LABS: HEMOGLOBIN A1c 5.3 % (4.0-6.0)
[2023-02-02 11:47] LABS: CREATININE, URINE 130.2 MG/DL; MAU/CREAT RATIO 3.8 MCG/MG (0.0-30.0)
[2023-02-02 11:50] LABS: ALBUMIN 3.8 G/DL (3.2-5.2); ALKALINE PHOSPHATASE 69 U/L (46-116); ALT/SGPT 20 U/L (7.0-40); AST/SGOT 11 U/L (<34); BILIRUBIN,TOTAL 0.6 MG/DL (0.3-1.2); BLOOD UREA NITROGEN 15 MG/DL (9-23); CALCIUM LEVEL 8.9 MG/DL (8.5-10.1); CARBON DIOXIDE LEVEL 29 MMOL/L (20-31); CHLORIDE LEVEL 105 MMOL/L (98-107); GLOMERULAR FILTRATION RATE > 60.0 (>58); GLUCOSE, FASTING 111 MG/DL (60-100); SODIUM LEVEL 139 MMOL/L (136-145); TOTAL PROTEIN 6.8 G/DL (5.7-8.2)
[2023-02-02 11:52] LABS: THYROID STIMULATING HORMONE 2.135 uIU/ML (0.55-4.78)
== END ==
LOC: M PLALAB 07:30
PROVIDERS: ATTEND Nurse Practitioner Adult Health
DX: E56.9 Vitamin deficiency, unspecified (principal); Z83.3 Family history of diabetes mellitus; Z13.29 Encounter for screening for other suspected endocrine disorder; Z13.220 Encounter for screening for lipoid disorders

== ENCOUNTER → 2023-04-25 | Outpatient (REF) ==
[~2023-04-25] MED LIST changes: -OXYB5TAB10 PO; +OXYB5TAB11 PO
[2023-04-25 10:46] LABS: RSV AMPLIFICATION NEGATIVE (NEGATIVE)
== END ==
LOC: M EMP 09:04
PROVIDERS: ATTEND Family Medicine
DX: Z11.52 Encounter for screening for COVID-19 (principal)

== ENCOUNTER → 2023-12-31 | Outpatient (CLI) | payer BC ==
[~2023-12-31] MED LIST changes: -LIDO15SO MT; +LIDO15SO8 MT; +NITR100C3 PO; -NITR1CAP11 PO; -OXYB5TAB11 PO; +OXYB5TAB14 PO
[2023-12-31 10:48] LABS: HEMATOCRIT 41.2 % (36.0-47.0); HEMOGLOBIN 13.8 g/dl (12.0-15.5); MEAN CORPUSCULAR HEMOGLOBIN 30.5 pg (27.0-33.0); MEAN CORPUSCULAR HGB CONC 33.5 g/dl (32.0-36.5); MEAN CORPUSCULAR VOLUME 91.2 fl (80.0-96.0); PLATELET COUNT, AUTOMATED 199 10^3/uL (150-450); RED BLOOD COUNT 4.52 10^6/uL (4.00-5.40); WHITE BLOOD COUNT 7.7 10^3/uL (4.0-10.0)
[2023-12-31 10:55] LABS: ERYTHROCYTE SEDIMENTATION RATE 20 mm/hr (0-20)
[2023-12-31 11:13] LABS: ALKALINE PHOSPHATASE 86 U/L (46-116); ALT/SGPT 29 U/L (7.0-40); AST/SGOT 13 U/L (<34); BILIRUBIN,TOTAL 0.5 MG/DL (0.3-1.2); BLOOD UREA NITROGEN 13 MG/DL (9-23); CALCIUM LEVEL 8.9 MG/DL (8.5-10.1); CARBON DIOXIDE LEVEL 29 MMOL/L (20-31); CHLORIDE LEVEL 108 MMOL/L (98-107); CREATININE FOR GFR 0.52 MG/DL (0.55-1.30); GLOMERULAR FILTRATION RATE > 60.0 (>58); GLUCOSE, FASTING 119 MG/DL (60-100); MAGNESIUM LEVEL 1.9 MG/DL (1.8-2.4); POTASSIUM SERUM 4.2 MMOL/L (3.5-5.1); SODIUM LEVEL 140 MMOL/L (136-145)
== END ==
LOC: M LAB 10:11
PROVIDERS: ATTEND Nurse Practitioner Adult Health
DX: R19.7 Diarrhea, unspecified (principal); Z83.3 Family history of diabetes mellitus; I10 Essential (primary) hypertension; M25.50 Pain in unspecified joint; M79.10 Myalgia, unspecified site

== ENCOUNTER 2024-01-24 15:47 | Emergency (ER) | payer BC ==
[~2024-01-24] VITALS: Ht 175.3 cm; Wt 100.1 kg
[2024-01-24] MEDS: ACETAMINOPHEN 500 MG TAB PO ONE (16:55)
[2024-01-24] MEDS ORDERED: IBUP-1022 PO (17:53)
[2024-01-24 18:06] VITALS: BP 154/88; TEMP 98.5; O2SAT 99
== END 2024-01-24 18:08 | disposition home or self-care (01) ==
LOC: M ED 15:47
DX: S06.0X0A Concussion without loss of consciousness, initial encounter (principal); W01.198A Fall on same level from slipping, tripping and stumbling with subsequent striking against other object, initial encounter; R51.9 Headache, unspecified; I10 Essential (primary) hypertension; K58.9 Irritable bowel syndrome, unspecified; K21.9 Gastro-esophageal reflux disease without esophagitis; Y92.009 Unspecified place in unspecified non-institutional (private) residence as the place of occurrence of the external cause; Y93.89 Activity, other specified; Y99.9 Unspecified external cause status; Z79.1 Long term (current) use of non-steroidal anti-inflammatories (NSAID); Z79.811 Long term (current) use of aromatase inhibitors; Z79.899 Other long term (current) drug therapy; Z88.0 Allergy status to penicillin; Z88.1 Allergy status to other antibiotic agents; Z88.8 Allergy status to other drugs, medicaments and biological substances

== ENCOUNTER → 2024-01-30 | Outpatient (REF) | LOC: M EMP 14:23 | PROVIDERS: ATTEND Family Medicine | DX: Z01.89 Encounter for other specified special examinations (principal) ==

== ENCOUNTER → 2024-02-13 | Outpatient (REF) | payer BC | LOC: M LAB REF 12:36 | PROVIDERS: ATTEND Nurse Practitioner Family | DX: J06.9 Acute upper respiratory infection, unspecified (principal) ==

== ENCOUNTER → 2024-02-21 | Outpatient (REF) | LOC: M EMP 15:34 | PROVIDERS: ATTEND Family Medicine | DX: Z11.52 Encounter for screening for COVID-19 (principal) ==

== ENCOUNTER → 2024-02-22 | Outpatient (REF) | LOC: M EMP 09:24 | PROVIDERS: ATTEND Family Medicine | DX: Z11.52 Encounter for screening for COVID-19 (principal) ==

== ENCOUNTER → 2024-04-28 | Outpatient (CLI) | payer BC ==
[2024-04-28 12:10] LABS: ALBUMIN 3.9 G/DL (3.2-5.2); ALKALINE PHOSPHATASE 87 U/L (35-104); ALT/SGPT 26 U/L (7.0-40); AST/SGOT 15 U/L (<34); BILIRUBIN,TOTAL 0.5 MG/DL (0.3-1.2); BLOOD UREA NITROGEN 12 MG/DL (9-23); CALCIUM LEVEL 9.6 MG/DL (8.5-10.1); CARBON DIOXIDE LEVEL 29 MMOL/L (20-31); CHLORIDE LEVEL 104 MMOL/L (98-107); GLOMERULAR FILTRATION RATE > 60.0 (>58); GLUCOSE, FASTING 107 MG/DL (60-100); POTASSIUM SERUM 4.2 MMOL/L (3.5-5.1); SODIUM LEVEL 138 MMOL/L (136-145); TOTAL PROTEIN 7.2 G/DL (5.7-8.2)
[2024-04-28 12:12] LABS: FREE T4 0.95 NG/DL (0.89-1.76)
[2024-04-28 12:13] LABS: THYROID STIMULATING HORMONE 1.657 uIU/ML (0.55-4.78)
[2024-04-28 12:25] LABS: HEMOGLOBIN A1c 6.1 % (4.0-6.0)
== END ==
LOC: M LAB 09:42 → M RAD 09:42
PROVIDERS: ATTEND Nurse Practitioner Adult Health
DX: M54.2 Cervicalgia (principal); I10 Essential (primary) hypertension; N92.1 Excessive and frequent menstruation with irregular cycle; Z83.3 Family history of diabetes mellitus; M54.50 Low back pain, unspecified; M25.552 Pain in left hip; M25.551 Pain in right hip; R14.0 Abdominal distension (gaseous); M47.816 Spondylosis without myelopathy or radiculopathy, lumbar region

== ENCOUNTER → 2024-05-14 | Outpatient (CLI) | payer BC | LOC: M WHC 08:11 | PROVIDERS: ATTEND Nurse Practitioner Adult Health | DX: R14.0 Abdominal distension (gaseous) (principal); Z90.49 Acquired absence of other specified parts of digestive tract ==

== ENCOUNTER → 2024-06-08 | Outpatient (CLI) | payer OTHER | LOC: M WHC 16:11 | PROVIDERS: ATTEND Nurse Practitioner Adult Health | DX: Z12.31 Encounter for screening mammogram for malignant neoplasm of breast (principal); R92.323 Mammographic fibroglandular density, bilateral breasts ==

== ENCOUNTER → 2024-08-30 | Outpatient (REF) | LOC: M EMP 08:29 | PROVIDERS: ATTEND Family Medicine | DX: Z11.52 Encounter for screening for COVID-19 (principal) ==